=== PATIENT | female | born 1935 | race Caucasian/White ===

== ENCOUNTER → 2017-01-30 | Outpatient (CLI) | payer OTHER ==
[~2017-01-30] MED LIST: ACET-1256 PO; AMLO-114 PO; AMOX500C3 PO; ATEN100T PO; ATOR10TA82 PO; CHOL1000 PO; LOSA1TAB38 PO; WARF4TAB8 PO; WARF5TAB7 PO
[2017-01-30 13:47] LABS: BASO % 0.4 %; BASO ABS # 0.02 K/uL (0-0.2); COMPLETE YES; EOS % 6.3 %; HEMATOCRIT 40.4 % (37-47); IG% 0.2 %; LYMPH % 30.7 %; LYMPH ABS # 1.62 K/uL (1.2-3.4); MEAN CELL VOLUME 96.4 fL (80-100); MEAN CORPUSCULAR HEMOGLOBIN 32.2 pg (25-34); MEAN CORPUSCULAR HGB CONC 33.4 g/dl (32-36); MEAN PLATELET VOLUME 10.6 fL (7.4-10.4); MONO % 9.7 %; NEUT % 52.7 %; PLATELET COUNT 197 K/uL (130-400); RED BLOOD COUNT 4.19 M/uL (4.2-5.4); WHITE BLOOD COUNT 5.27 K/uL (4.8-10.8)
[2017-01-30 14:23] LABS: BLOOD UREA NITROGEN 22 mg/dl (7-18); BUN/CREATININE RATIO 25.3 (10-20); CALCIUM 8.9 mg/dl (8.5-10.1); CARBON DIOXIDE 25 mmol/L (21-32); CHLORIDE 110 mmol/L (98-107); CREATININE 0.89 mg/dl (0.60-1.20); GLUCOSE 97 mg/dl (70-99); SODIUM 143 mmol/L (136-145)
[2017-01-30 14:39] LABS: ESTIMATED AVERAGE GLUCOSE 128 mg/dl; HA1C FLAG Normal (Normal)
--- NOTE | 2017-02-13 11:00 | CODING QUERY MEDICAL NECESSITY ---
SUPPORTING DIAGNOSIS NEEDED A supporting diagnosis is required for the test/procedure performed on this patient in order for us to be reimbursed by the patient's insurance. Please provide a supporting diagnosis for the following test/procedure listed below next to the test name along with your signature. *If there is no additional diagnosis for this patient that would support the following test/procedure please document that below next to the test/procedure. Test(s)/Procedure(s) that require a supporting diagnosis: * HEMOGLOBIN A1C DIAGNOSIS: Provider Signature: Date: Thank you Ludmila Flynn [employer] Once completed, please kindly fax back to [phone] For questions please call [phone]
== END ==
LOC: C.LABBC 09:38
PROVIDERS: ATTEND Internal Medicine Geriatric Medicine
DX: I10 Essential (primary) hypertension (principal); M19.90 Unspecified osteoarthritis, unspecified site; E78.5 Hyperlipidemia, unspecified; Z79.01 Long term (current) use of anticoagulants; M85.80 Other specified disorders of bone density and structure, unspecified site; Z51.81 Encounter for therapeutic drug level monitoring; E11.9 Type 2 diabetes mellitus without complications

== ENCOUNTER → 2017-04-17 | Outpatient (CLI) | payer OTHER ==
[~2017-04-17] MED LIST changes: -ATOR10TA82 PO; +ATOR10TA88 PO
--- NOTE | 2017-04-17 14:14 | MAMMOGRAPHY REPORT ---
BILATERAL DIGITAL SCREENING MAMMOGRAM WITH CAD: 04/17/2017 CLINICAL HISTORY: Routine screening. Patient has no complaints. TECHNIQUE: Current study was also evaluated with a Computer Aided Detection (CAD) system. Bilateral CC and MLO views were obtained. COMPARISON: Comparison is made to exams dated: 04/16/2016 mammogram, 04/13/2015 mammogram, 04/12/2014 m ammogram, 04/07/2012 mammogram, 04/04/2011 mammogram, and 03/27/2006 mammogram - [facility]ter. BREAST COMPOSITION: The tissue of both breasts is almost entirely fatty. FINDINGS: No suspicious masses, calcifications, or areas of architectural distortion are noted in ei ther breast. There has been no significant interval change compared to prior exams. IMPRESSION: ACR BI-RADS CATEGORY 1: NEGATIVE There is no mammographic evidence of malignancy. A 1 year screening mammogram is recommended. The pa tient will receive written notification of the results. Approximately 10% of breast cancers are not detected with mammography. A negative mammographic report should not delay biopsy if a clinically suggestive mass is present. Delmy Yip M.D. /:04/17/2017 10:23:38 Furnace Loader: Mary GILES(Arpita)(Brianna), [facility] letter sent: Normal 1/2 BI-RADS Code: ACR BI-RADS Category 1: Negative
== END | disposition home or self-care (01) ==
LOC: C.MAMM 09:46
PROVIDERS: ATTEND Internal Medicine Geriatric Medicine
DX: Z12.31 Encounter for screening mammogram for malignant neoplasm of breast (principal)

== ENCOUNTER 2018-12-19 05:32 | Inpatient (IN) ==
[2018-12-19] MEDS ORDERED: SODIUM CHLORIDE 0.9% 1000ML 1,000 ML IV SCH ×2 (06:00→10:56)
[2018-12-19 06:17] LABS: Basophils # (auto) 0.02 K/uL (0-0.2); Basophils % (auto) 0.2 %; Eosinophils # (auto) 0.04 K/uL (0-0.5); Eosinophils % (auto) 0.4 %; Hematocrit (blood only) 37.7 % (37-47); Hemoglobin 13.5 g/dL (12.0-16.0); Immature Granulocytes # (auto) 0.03 K/uL (0.00-0.02); Immature Granulocytes % (auto) 0.3 %; Lymphocytes # (auto) 1.66 K/uL (1.2-3.4); Lymphocytes % (auto) 15.3 %; Mean Corpuscular Hgb Conc 35.8 g/dL (32-36); Mean Corpuscular Volume 87.5 fL (80-100); Mean Platelet Volume 10.4 fL (7.4-10.4); Monocytes # (auto) 1.67 K/uL (0.11-0.59); Monocytes % (auto) 15.4 %; Neutrophils # (auto) 7.45 K/uL (1.4-6.5); Neutrophils % (auto) 68.4 %; Platelet Count 331 K/uL (130-400); RDW Coefficient of Variation 22.3 % (11.5-14.5); RDW Standard Deviation 67.7 fL (36.4-46.3); Red Blood Count 4.31 M/uL (4.2-5.4); White Blood Count 10.87 K/uL (4.8-10.8)
[2018-12-19 06:31] LABS: INR 2.6 (0.9-1.1); Partial Thromboplastin Ratio 1.1; Partial Thromboplastin Time 30.6 Seconds (21.0-31.0); Prothrombin Time 25.1 Seconds (9.0-12.0)
[2018-12-19 06:38] LABS: BUN Creatinine Ratio 26.2 (10-20); Calcium 11.5 mg/dl (8.5-10.1); Est GFR (Non-African American) 25.9; Magnesium 2.2 mg/dl (1.8-2.4); Potassium 4.3 mmol/L (3.5-5.1)
[2018-12-19 06:41] LABS: Anisocytosis Present; Target Cells 1+
[2018-12-19 06:51] LABS: Albumin Globulin Ratio 0.5 (0.9-2); Bilirubin,Total 9.8 mg/dl (0.2-1); Globulin 3.7 gm/dl (2.5-4.0); Total Protein 5.7 gm/dl (6.4-8.2); Troponin I 0.184 ng/ml (0-0.045)
[2018-12-19] MEDS ORDERED: IOVERSOL 100ml IV PRN (07:18)
--- NOTE | 2018-12-19 07:19 | Emergency Department Note ---
History of Present Illness General Chief complaint: Fall Stated complaint: FALL-HIT BACK OF HEAD Time Seen by Provider: 12/19/18 05:48 History of Present Illness This is an 83-year-old female presenting to the emergency department after a fall that occurred at home less than 1 hour prior to arrival. The patient states that she got up at night to use the bathroom, and as she was returning to her bed felt lightheadedness. The patient's balance was altered, and she fell to the ground. The patient states that she landed primarily onto her buttocks, and then fell backward, striking her head. The patient is on Coumadin for history of blood clots. About 1 week ago she had an INR greater than 6. This was adjusted through the Coumadin clinic, and was 1.9 a few days ago. The patient does not report having significant pain of her head, neck, chest, abdomen, pelvis, or extremities. She is accompanied by a family member who is concerned as the patient has had some yellowing of her skin in the past several days. The patient does not report fever or chills. She does report some vague urine/bladder discomfort. The patient rates her current discomfort as 0/10. Home Medications Home Medications Medication Instructions Recorded Confirmed Type acetaminophen 500 mg capsule 1,000 mg PO QAM cap 06/16/18 12/19/18 History atorvastatin 10 mg tablet 5 mg PO DAILY tab 06/16/18 12/19/18 History cholecalciferol (vitamin D3) 1,000 1,000 units PO DAILY 06/16/18 12/19/18 History unit capsule acetaminophen 500 mg capsule 500 mg PO PM cap 09/22/18 12/19/18 History ferrous sulfate 325 mg (65 mg 325 mg PO Q2D tab 09/22/18 12/19/18 History iron) tablet omeprazole 20 mg capsule,delayed 20 mg PO DAILY cap 09/22/18 12/19/18 History release ranitidine HCl [Zantac] 150 mg PO DAILY 10/12/18 12/19/18 History furosemide 20 mg tablet See Rx Instructions PO DAILY tab 10/27/18 12/19/18 History amlodipine 10 mg tablet 5 mg PO DAILY tab 12/11/18 12/19/18 History losartan 100 mg tablet 50 mg PO DAILY tab 12/11/18 12/19/18 History warfarin 4 mg tablet See Rx Instructions .ROUTE UD tab 12/15/18 12/19/18 History Allergies Allergy/AdvReac Type Severity Reaction Status Date / Time Cephalosporins Allergy Mild KEFLEX=ITCH Verified 12/19/18 06:26 Y Sulfa (Sulfonamide Allergy Mild RASH Verified 12/19/18 06:26 Antibiotics) levofloxacin Allergy Unknown MUSCLE Verified 12/19/18 06:26 TEAR? Past Med/Surg History Medical History Pre-diabetes (Chronic) Basal cell carcinoma of nose (Resolved) Bronchitis (Resolved) History of hysterectomy (Resolved) Pulmonary embolism (Resolved) Surgical History History of knee replacement procedure of right knee (Resolved) Family History Brother Colorectal cancer Mother Breast cancer Father Liver cancer Social History Preferred Language: Khmer Communication Ability: Effective Axle Inspector Required: No Beliefs That Will Affect Care: None Current Living Situation: Alone Other Information That Helps Us Care for You: No Feels Safe at Home: Yes Safety Concerns: Feels Safe At This Time Smoking Status: Never smoker Do You Dip or Chew Tobacco: No Second Hand Exposure: No Tobacco Cessation Education Requested by Patient: No Hx Alcohol Use: No Hx Substance Use: No Review of Systems A total of 10 systems reviewed and were otherwise negative Physical Exam Vital Signs Vital Signs - 24 hr 12/19/18 05:37 12/19/18 06:01 12/19/18 06:30 Temperature Temperature Source Sepsis Recent Fever Within 48 Hours No Sepsis Action Taken by Nursing No Action Required Pulse Rate 53 L Pulse Rate [Apical] 57 L Pulse Rhythm [Apical] Regular Pulse Strength [Apical] Normal Respiratory Rate 17 Respiratory Effort / Characteristics Non-Labored Spontaneous Respiratory Depth Normal Respiratory Pattern Regular Blood Pressure 96/50 L Blood Pressure [Right Arm] 106/44 L Blood Pressure Mean 65 Blood Pressure Mean [Right Arm] 64 Blood Pressure Position [Right Arm] Sitting Pulse Oximetry 96 96 98 Oxygen Delivery Method Room Air Room Air Room Air Oxygen Flow Rate 12/19/18 07:31 12/19/18 09:09 12/19/18 10:56 Temperature 36.8 C Temperature Source Oral Sepsis Recent Fever Within 48 Hours Sepsis Action Taken by Nursing Pulse Rate Pulse Rate [Apical] 50 L 50 L 50 L Pulse Rhythm [Apical] Regular Pulse Strength [Apical] Normal Respiratory Rate 20 20 22 Respiratory Effort / Characteristics Non-Labored Spontaneous Non-Labored Non-Labored Spontaneous Respiratory Depth Normal Normal Normal Respiratory Pattern Regular Blood Pressure Blood Pressure [Right Arm] 133/59 L 137/53 L 115/57 L Blood Pressure Mean Blood Pressure Mean [Right Arm] 83 81 76 Blood Pressure Position [Right Arm] Lying Pulse Oximetry 97 95 99 Oxygen Delivery Method Room Air Room Air Room Air Oxygen Flow Rate 12/19/18 15:12 12/19/18 16:49 Temperature 36.2 C L Temperature Source Axillary Sepsis Recent Fever Within 48 Hours Sepsis Action Taken by Nursing Pulse Rate Pulse Rate [Apical] 49 L 117 H Pulse Rhythm [Apical] Irregular Pulse Strength [Apical] Respiratory Rate 18 16 Respiratory Effort / Characteristics Respiratory Depth Normal Normal Respiratory Pattern Blood Pressure Blood Pressure [Right Arm] 103/45 L 133/74 Blood Pressure Mean Blood Pressure Mean [Right Arm] 64 93 Blood Pressure Position [Right Arm] Sitting Lying Pulse Oximetry 98 99 Oxygen Delivery Method Room Air Nasal Cannula Oxygen Flow Rate 3 VITALS: Vitals are noted on the nurse's note and reviewed by myself. Vital signs stable. GENERAL: Jaundiced appearing white female who is cooperative with examination. HEAD: Normocephalic atraumatic. EARS: External ear normal. External auditory canals clear, tympanic membranes pearly chairez without erythema or effusion bilaterally. EYES: Pupils equal round and reactive to light and accommodation. Scleral icterus noted. NOSE: Patent, turbinates without inflammation or discharge. MOUTH: Mucous membranes moist. No active blood or bleeding. NECK: Supple without nuchal rigidity. Cervical spine is nontender. HEART: Regular rate and rhythm with systolic murmur LUNGS: Clear to auscultation bilaterally without wheezes, rales or rhonchi. No retractions or accessory muscle use. ABDOMEN: Positive normal bowel sounds x 4. Soft, nontender, without masses or organomegaly. MUSCULOSKELETAL: No muscle atrophy, erythema, or edema noted. Full range of motion in all extremities. NEURO: Patient was alert and oriented to person place and time. CN II through XII grossly intact. Course Administered Medications Dopamine HCl/Dextrose (Dopamine / D5w) 400 mg in 250 mls @ 54.281 mls/hr IV .Q4H37M [facility]; Protocol Stop: 01/18/19 17:14 Last Admin: 12/19/18 19:31 Dose: Not Given Documented by: [id number] Titration: 12/19/18 18:00 Dose: 15 mcg/kg/min, 54.3 mls/hr Documented by: [id number] Titration: 12/19/18 17:45 Dose: 8 mcg/kg/min, 29 mls/hr Documented by: [id number] Admin: 12/19/18 17:25 Dose: 5 mcg/kg/min, 18.1 mls/hr Documented by: [id number] Cosigned by: [id number] Norepinephrine Bitartrate 8 mg (/ Dextrose) 508 mls @ 18.38 mls/hr IV .Q24H [facility]; Protocol Stop: 01/18/19 18:29 Last Admin: 12/19/18 18:39 Dose: 0.05 mcg/kg/min, 18.4 mls/hr Documented by: [id number] Cosigned by: [id number] Pantoprazole Sodium 40 mg/ (Dextrose) 100 mls @ 20 mls/hr IV Q5H [facility] Stop: 01/18/19 18:59 Last Admin: 12/19/18 19:40 Dose: 20 mls/hr Documented by: [id number] Ioversol (Optiray 320 100ml) 93 ml IV ONCE PRN PRN Reason: Interaction Checking Stop: 12/23/18 07:17 Last Admin: 12/19/18 07:19 Dose: 93 ml Documented by: [id number] Ondansetron HCl (Zofran) 4 mg IV Q6H PRN PRN Reason: Nausea Stop: 01/18/19 10:55 Last Admin: 12/19/18 16:47 Dose: 4 mg Documented by: [id number] Ranitidine HCl (Zantac) 150 mg PO DAILY [facility] Stop: 01/18/19 10:55 Last Admin: 12/19/18 13:13 Dose: 150 mg Documented by: [id number] Discontinued Medications Dopamine HCl/Dextrose (Dopamine / D5w) Confirm Administered Dose 400 mg IV .STK- MED ONE Stop: 12/19/18 17:13 Last Admin: 12/19/18 18:52 Dose: Not Given Documented by: [id number] Sodium Chloride (Nss 1000ml) 1,000 mls @ 250 mls/hr IV .Q4H [facility] Stop: 12/19/18 09:59 Last Infusion: 12/19/18 09:21 Dose: 0 mls/hr Documented by: [id number] Admin: 12/19/18 06:11 Dose: 250 mls/hr Documented by: [id number] Sodium Chloride (Nss 1000ml) 1,000 mls @ 100 mls/hr IV .Q10H [facility] Stop: 12/19/18 20:55 Last Infusion: 12/19/18 15:28 Dose: 0 mls/hr Documented by: [id number] Admin: 12/19/18 11:24 Dose: 100 mls/hr Documented by: [id number] Phytonadione 5 mg/ Sodium (Chloride) 50.5 mls @ 101 mls/hr IV TODAY@1100 ONE Stop: 12/19/18 11:29 Last Infusion: 12/19/18 12:15 Dose: 0 mls/hr Documented by: [id number] Admin: 12/19/18 11:05 Dose: 101 mls/hr Documented by: [id number] Piperacillin Sod/Tazobactam (Sod 4.5 gm/ Dextrose) 120 mls @ 200 mls/hr IV TODAY@1200 ONE; Protocol Stop: 12/19/18 12:35 Last Infusion: 12/19/18 13:58 Dose: 0 mls/hr Documented by: [id number] Admin: 12/19/18 13:13 Dose: 200 mls/hr Documented by: [id number] Phytonadione 5 mg/ Sodium (Chloride) 50.5 mls @ 101 mls/hr IV TODAY@1815 ONE Stop: 12/19/18 18:44 Last Infusion: 12/19/18 19:20 Dose: 0 mls/hr Documented by: [id number] Admin: 12/19/18 18:48 Dose: 101 mls/hr Documented by: [id number] Piperacillin Sod/Tazobactam (Sod 4.5 gm/ Dextrose) 120 mls @ 200 mls/hr IV NOW ONE; Protocol Stop: 12/19/18 19:20 Last Infusion: 12/19/18 20:36 Dose: 0 mls/hr Documented by: [id number] Admin: 12/19/18 19:40 Dose: 200 mls/hr Documented by: [id number] Pantoprazole Sodium (Protonix) 40 mg PO DAILY [facility] Stop: 01/18/19 10:59 Last Admin: 12/19/18 13:13 Dose: 40 mg Documented by: [id number] Medical Decision Making Differential Diagnosis Differential diagnosis: Etiologies such as sprain, strain, fracture, dislocation, subluxation, contusion, cancer, mechanical fall, cardiopulmonary event, biliary colic, c holecystitis, hepatitis, pancreatitis, cardiac disease, pancreatitis, gastritis, peptic ulcer disease, appendicitis, cystitis, diverticulitis, mesenteric ischemia, inflammatory bowel disease, ileus, bowel obstruction, testicular/adnexal torsion, aortic pathology, shingles, as well as others were considered Laboratory Data Result diagrams: 12/19/18 19:36 12/19/18 19:36 Lab Results 12/19/18 12/19/18 12/19/18 Range/Units 06:04 06:04 06:04 WBC 10.87 H (4.8-10.8) K/uL RBC 4.31 (4.2-5.4) M/uL Hgb 13.5 (12.0-16.0) g/dL Hct 37.7 (37-47) % MCV 87.5 (80-100) fL MCH 31.3 (25-34) pg MCHC 35.8 (32-36) g/dL RDW Std Deviation 67.7 H (36.4-46.3) fL RDW Coeff of Rachna 22.3 H (11.5-14.5) % Plt Count 331 (130-400) K/uL MPV 10.4 (7.4-10.4) fL Immature Gran % (Auto) 0.3 % Neut % (Auto) 68.4 % Lymph % (Auto) 15.3 % [place] % (Auto) 15.4 % Eos % (Auto) 0.4 % Baso % (Auto) 0.2 % Immature Gran # (Auto) 0.03 H (0.00-0.02) K/uL Neut # (Auto) 7.45 H (1.4-6.5) K/uL Lymph # (Auto) 1.66 (1.2-3.4) K/uL [place] # (Auto) 1.67 H (0.11-0.59) K/uL Eos # (Auto) 0.04 (0-0.5) K/uL Baso # (Auto) 0.02 (0-0.2) K/uL Absolute Nucleated RBC (0-0) K/uL Nucleated RBC % (auto) % Anisocytosis Present Target Cells 1+ Tear Drop Cells Echinocytes PT 25.1 H (9.0-12.0) Seconds INR 2.6 H (0.9-1.1) APTT 30.6 (21.0-31.0) Seconds PTT Ratio 1.1 Fibrinogen (184-400) mg/dl Sample Site POC pH (7.35-7.45) POC pCO2 (35-46) mmHg POC pO2 (80-95) mmHg POC HCO3 (19-24) evy/L POC Total CO2 (24-31) mEq/l POC Base Excess (-9-1.8) evy/L POC ABG O2 Sat (90-95) % Jamie Test O2 Delivery Device Sodium 133 L (136-145) mmol/L Potassium 4.3 (3.5-5.1) mmol/L Chloride 102 (98-107) mmol/L Carbon Dioxide 21 (21-32) mmol/L Anion Gap 10.0 (3-11) BUN 47 H (7-18) mg/dl Creatinine 1.78 H (0.6-1.2) mg/dl Est Cr Clr Drug Dosing 27.0 ml/min Est GFR ( Amer) 30.0 Est GFR (Non-Af Amer) 25.9 BUN/Creatinine Ratio 26.2 H (10-20) Glucose 112 H (70-99) mg/dl Lactate (0.4-2.0) mmol/L Calcium 11.5 H (8.5-10.1) mg/dl Magnesium 2.2 (1.8-2.4) mg/dl Total Bilirubin 9.8 H (0.2-1) mg/dl Direct Bilirubin (0-0.2) mg/dl AST 470 H (15-37) U/L ALT 126 H (12-78) U/L Alkaline Phosphatase 1249 H (45-117) U/L Troponin I 0.184 H* (0-0.045) ng/ml NT-Pro-B Natriuret Pep Total Protein 5.7 L (6.4-8.2) gm/dl Albumin 2.0 L (3.4-5.0) gm/dl Globulin 3.7 (2.5-4.0) gm/dl Albumin/Globulin Ratio 0.5 L (0.9-2) Lipase 442 H (73-393) U/L Urine Color Urine Appearance (Clear) Urine pH (4.5-7.5) Ur Specific [place] (1.000-1.030) Urine Protein (Negative) Urine Glucose (UA) (Negative) Urine Ketones (Negative) Urine Blood (Negative) Urine Nitrite (Negative) Urine Bilirubin (Negative) Urine Urobilinogen (Negative) Ur Leukocyte Esterase (Negative) Urine RBC (0-4) /hpf Urine WBC (0-5) /hpf Ur Epithelial Cells (0-5) /lpf Calcium Oxalate Crystal (None Prsent) Urine Bacteria (Negative) Hyaline Casts (0-5) /lpf Urine Mucus (None Prsent) Blood Type Antibody Screen Crossmatch 12/19/18 12/19/18 12/19/18 Range/Units 11:40 14:13 14:13 WBC (4.8-10.8) K/uL RBC (4.2-5.4) M/uL Hgb (12.0-16.0) g/dL Hct (37-47) % MCV (80-100) fL MCH (25-34) pg MCHC (32-36) g/dL RDW Std Deviation (36.4-46.3) fL RDW Coeff of Rachna (11.5-14.5) % Plt Count (130-400) K/uL MPV (7.4-10.4) fL Immature Gran % (Auto) % Neut % (Auto) % Lymph % (Auto) % [place] % (Auto) % Eos % (Auto) % Baso % (Auto) % Immature Gran # (Auto) (0.00-0.02) K/uL Neut # (Auto) (1.4-6.5) K/uL Lymph # (Auto) (1.2-3.4) K/uL [place] # (Auto) (0.11-0.59) K/uL Eos # (Auto) (0-0.5) K/uL Baso # (Auto) (0-0.2) K/uL Absolute Nucleated RBC (0-0) K/uL Nucleated RBC % (auto) % Anisocytosis Target Cells Tear Drop Cells Echinocytes PT (9.0-12.0) Seconds INR (0.9-1.1) APTT (21.0-31.0) Seconds PTT Ratio Fibrinogen (184-400) mg/dl Sample Site POC pH (7.35-7.45) POC pCO2 (35-46) mmHg POC pO2 (80-95) mmHg POC HCO3 (19-24) evy/L POC Total CO2 (24-31) mEq/l POC Base Excess (-9-1.8) evy/L POC ABG O2 Sat (90-95) % Jamie Test O2 Delivery Device Sodium 134 L (136-145) mmol/L Potassium 4.5 (3.5-5.1) mmol/L Chloride 104 (98-107) mmol/L Carbon Dioxide 19 L (21-32) mmol/L Anion Gap 11.0 (3-11) BUN 45 H (7-18) mg/dl Creatinine 1.60 H (0.6-1.2) mg/dl Est Cr Clr Drug Dosing 30.0 ml/min Est GFR ( Amer) 34.2 Est GFR (Non-Af Amer) 29.5 BUN/Creatinine Ratio 28.1 H (10-20) Glucose 83 (70-99) mg/dl Lactate (0.4-2.0) mmol/L Calcium 11.4 H (8.5-10.1) mg/dl Magnesium (1.8-2.4) mg/dl Total Bilirubin 10.3 H (0.2-1) mg/dl Direct Bilirubin 7.9 H (0-0.2) mg/dl AST 456 H (15-37) U/L ALT 125 H (12-78) U/L Alkaline Phosphatase 1174 H (45-117) U/L Troponin I (0-0.045) ng/ml NT-Pro-B Natriuret Pep Cancelled 7321 H Total Protein 5.6 L (6.4-8.2) gm/dl Albumin 1.9 L (3.4-5.0) gm/dl Globulin (2.5-4.0) gm/dl Albumin/Globulin Ratio (0.9-2) Lipase (73-393) U/L Urine Color [place] Urine Appearance Slightly Cloudy H (Clear) Urine pH (4.5-7.5) Ur Specific [place] 1.041 H (1.000-1.030) Urine Protein Positive H (Negative) Urine Glucose (UA) (Negative) Urine Ketones (Negative) Urine Blood (Negative) Urine Nitrite (Negative) Urine Bilirubin (Negative) Urine Urobilinogen (Negative) Ur Leukocyte Esterase (Negative) Urine RBC 0-4 (0-4) /hpf Urine WBC 5-10 H (0-5) /hpf Ur Epithelial Cells >30 H (0-5) /lpf Calcium Oxalate Crystal Present H (None Prsent) Urine Bacteria 1+ H (Negative) Hyaline Casts 10-30 H (0-5) /lpf Urine Mucus Present H (None Prsent) Blood Type Antibody Screen Crossmatch 12/19/18 12/19/18 12/19/18 Range/Units 14:13 14:13 19:18 WBC (4.8-10.8) K/uL RBC (4.2-5.4) M/uL Hgb (12.0-16.0) g/dL Hct (37-47) % MCV (80-100) fL MCH (25-34) pg MCHC (32-36) g/dL RDW Std Deviation (36.4-46.3) fL RDW Coeff of Rachna (11.5-14.5) % Plt Count (130-400) K/uL MPV (7.4-10.4) fL Immature Gran % (Auto) % Neut % (Auto) % Lymph % (Auto) % [place] % (Auto) % Eos % (Auto) % Baso % (Auto) % Immature Gran # (Auto) (0.00-0.02) K/uL Neut # (Auto) (1.4-6.5) K/uL Lymph # (Auto) (1.2-3.4) K/uL [place] # (Auto) (0.11-0.59) K/uL Eos # (Auto) (0-0.5) K/uL Baso # (Auto) (0-0.2) K/uL Absolute Nucleated RBC (0-0) K/uL Nucleated RBC % (auto) % Anisocytosis Target Cells Tear Drop Cells Echinocytes PT 24.6 H (9.0-12.0) Seconds INR 2.6 H (0.9-1.1) APTT (21.0-31.0) Seconds PTT Ratio Fibrinogen (184-400) mg/dl Sample Site R Radial POC pH 7.28 L (7.35-7.45) POC pCO2 30 L (35-46) mmHg POC pO2 113 H (80-95) mmHg POC HCO3 14 L (19-24) evy/L POC Total CO2 15 L (24-31) mEq/l POC Base Excess -13.0 L (-9-1.8) evy/L POC ABG O2 Sat 98.0 H (90-95) % Jamie Test Pass O2 Delivery Device Cannula Sodium (136-145) mmol/L Potassium (3.5-5.1) mmol/L Chloride (98-107) mmol/L Carbon Dioxide (21-32) mmol/L Anion Gap (3-11) BUN (7-18) mg/dl Creatinine (0.6-1.2) mg/dl Est Cr Clr Drug Dosing ml/min Est GFR ( Amer) Est GFR (Non-Af Amer) BUN/Creatinine Ratio (10-20) Glucose (70-99) mg/dl Lactate (0.4-2.0) mmol/L Calcium (8.5-10.1) mg/dl Magnesium (1.8-2.4) mg/dl Total Bilirubin (0.2-1) mg/dl Direct Bilirubin (0-0.2) mg/dl AST (15-37) U/L ALT (12-78) U/L Alkaline Phosphatase (45-117) U/L Troponin I 0.274 H* (0-0.045) ng/ml NT-Pro-B Natriuret Pep Total Protein (6.4-8.2) gm/dl Albumin (3.4-5.0) gm/dl Globulin (2.5-4.0) gm/dl Albumin/Globulin Ratio (0.9-2) Lipase (73-393) U/L Urine Color Urine Appearance (Clear) Urine pH (4.5-7.5) Ur Specific [place] (1.000-1.030) Urine Protein (Negative) Urine Glucose (UA) (Negative) Urine Ketones (Negative) Urine Blood (Negative) Urine Nitrite (Negative) Urine Bilirubin (Negative) Urine Urobilinogen (Negative) Ur Leukocyte Esterase (Negative) Urine RBC (0-4) /hpf Urine WBC (0-5) /hpf Ur Epithelial Cells (0-5) /lpf Calcium Oxalate Crystal (None Prsent) Urine Bacteria (Negative) Hyaline Casts (0-5) /lpf Urine Mucus (None Prsent) Blood Type Antibody Screen Crossmatch 12/19/18 12/19/18 12/19/18 Range/Units 19:35 19:35 19:36 WBC 13.90 H (4.8-10.8) K/uL RBC 3.96 L (4.2-5.4) M/uL Hgb 12.7 (12.0-16.0) g/dL Hct 34.2 L (37-47) % MCV 86.4 (80-100) fL MCH 32.1 (25-34) pg MCHC 37.1 H (32-36) g/dL RDW Std Deviation 67.9 H (36.4-46.3) fL RDW Coeff of Rachna 22.5 H (11.5-14.5) % Plt Count 296 (130-400) K/uL MPV 10.8 H (7.4-10.4) fL Immature Gran % (Auto) 0.6 % Neut % (Auto) 76.8 % Lymph % (Auto) 9.2 % [place] % (Auto) 12.8 % Eos % (Auto) 0.4 % Baso % (Auto) 0.2 % Immature Gran # (Auto) 0.08 H (0.00-0.02) K/uL Neut # (Auto) 10.68 H (1.4-6.5) K/uL Lymph # (Auto) 1.28 (1.2-3.4) K/uL [place] # (Auto) 1.78 H (0.11-0.59) K/uL Eos # (Auto) 0.05 (0-0.5) K/uL Baso # (Auto) 0.03 (0-0.2) K/uL Absolute Nucleated RBC 0.02 H (0-0) K/uL Nucleated RBC % (auto) 0.1 % Anisocytosis Present Target Cells 1+ Tear Drop Cells 1+ Echinocytes 1+ PT (9.0-12.0) Seconds INR (0.9-1.1) APTT (21.0-31.0) Seconds PTT Ratio Fibrinogen (184-400) mg/dl Sample Site POC pH (7.35-7.45) POC pCO2 (35-46) mmHg POC pO2 (80-95) mmHg POC HCO3 (19-24) evy/L POC Total CO2 (24-31) mEq/l POC Base Excess (-9-1.8) evy/L POC ABG O2 Sat (90-95) % Jamie Test O2 Delivery Device Sodium (136-145) mmol/L Potassium (3.5-5.1) mmol/L Chloride (98-107) mmol/L Carbon Dioxide (21-32) mmol/L Anion Gap (3-11) BUN (7-18) mg/dl Creatinine (0.6-1.2) mg/dl Est Cr Clr Drug Dosing ml/min Est GFR ( Amer) Est GFR (Non-Af Amer) BUN/Creatinine Ratio (10-20) Glucose (70-99) mg/dl Lactate 6.4 H* (0.4-2.0) mmol/L Calcium (8.5-10.1) mg/dl Magnesium (1.8-2.4) mg/dl Total Bilirubin (0.2-1) mg/dl Direct Bilirubin (0-0.2) mg/dl AST (15-37) U/L ALT (12-78) U/L Alkaline Phosphatase (45-117) U/L Troponin I (0-0.045) ng/ml NT-Pro-B Natriuret Pep Total Protein (6.4-8.2) gm/dl Albumin (3.4-5.0) gm/dl Globulin (2.5-4.0) gm/dl Albumin/Globulin Ratio (0.9-2) Lipase (73-393) U/L Urine Color Urine Appearance (Clear) Urine pH (4.5-7.5) Ur Specific [place] (1.000-1.030) Urine Protein (Negative) Urine Glucose (UA) (Negative) Urine Ketones (Negative) Urine Blood (Negative) Urine Nitrite (Negative) Urine Bilirubin (Negative) Urine Urobilinogen (Negative) Ur Leukocyte Esterase (Negative) Urine RBC (0-4) /hpf Urine WBC (0-5) /hpf Ur Epithelial Cells (0-5) /lpf Calcium Oxalate Crystal (None Prsent) Urine Bacteria (Negative) Hyaline Casts (0-5) /lpf Urine Mucus (None Prsent) Blood Type A Negative Antibody Screen NEGATIVE Crossmatch See Detail 12/19/18 12/19/18 Range/Units 19:36 19:36 WBC (4.8-10.8) K/uL RBC (4.2-5.4) M/uL Hgb (12.0-16.0) g/dL Hct (37-47) % MCV (80-100) fL MCH (25-34) pg MCHC (32-36) g/dL RDW Std Deviation (36.4-46.3) fL RDW Coeff of Rachna (11.5-14.5) % Plt Count (130-400) K/uL MPV (7.4-10.4) fL Immature Gran % (Auto) % Neut % (Auto) % Lymph % (Auto) % [place] % (Auto) % Eos % (Auto) % Baso % (Auto) % Immature Gran # (Auto) (0.00-0.02) K/uL Neut # (Auto) (1.4-6.5) K/uL Lymph # (Auto) (1.2-3.4) K/uL [place] # (Auto) (0.11-0.59) K/uL Eos # (Auto) (0-0.5) K/uL Baso # (Auto) (0-0.2) K/uL Absolute Nucleated RBC (0-0) K/uL Nucleated RBC % (auto) % Anisocytosis Target Cells Tear Drop Cells Echinocytes PT 25.7 H (9.0-12.0) Seconds INR 2.7 H (0.9-1.1) APTT 31.6 H (21.0-31.0) Seconds PTT Ratio 1.2 Fibrinogen 242 (184-400) mg/dl Sample Site POC pH (7.35-7.45) POC pCO2 (35-46) mmHg POC pO2 (80-95) mmHg POC HCO3 (19-24) evy/L POC Total CO2 (24-31) mEq/l POC Base Excess (-9-1.8) evy/L POC ABG O2 Sat (90-95) % Jamie Test O2 Delivery Device Sodium 136 (136-145) mmol/L Potassium 4.3 (3.5-5.1) mmol/L Chloride 106 (98-107) mmol/L Carbon Dioxide 15 L (21-32) mmol/L Anion Gap 15.0 H (3-11) BUN 47 H (7-18) mg/dl Creatinine 1.76 H (0.6-1.2) mg/dl Est Cr Clr Drug Dosing 27.3 ml/min Est GFR ( Amer) 30.5 Est GFR (Non-Af Amer) 26.3 BUN/Creatinine Ratio 26.9 H (10-20) Glucose 87 (70-99) mg/dl Lactate (0.4-2.0) mmol/L Calcium 10.8 H (8.5-10.1) mg/dl Magnesium 2.2 (1.8-2.4) mg/dl Total Bilirubin (0.2-1) mg/dl Direct Bilirubin (0-0.2) mg/dl AST (15-37) U/L ALT (12-78) U/L Alkaline Phosphatase (45-117) U/L Troponin I 0.297 H* (0-0.045) ng/ml NT-Pro-B Natriuret Pep Total Protein (6.4-8.2) gm/dl Albumin (3.4-5.0) gm/dl Globulin (2.5-4.0) gm/dl Albumin/Globulin Ratio (0.9-2) Lipase (73-393) U/L Urine Color Urine Appearance (Clear) Urine pH (4.5-7.5) Ur Specific [place] (1.000-1.030) Urine Protein (Negative) Urine Glucose (UA) (Negative) Urine Ketones (Negative) Urine Blood (Negative) Urine Nitrite (Negative) Urine Bilirubin (Negative) Urine Urobilinogen (Negative) Ur Leukocyte Esterase (Negative) Urine RBC (0-4) /hpf Urine WBC (0-5) /hpf Ur Epithelial Cells (0-5) /lpf Calcium Oxalate Crystal (None Prsent) Urine Bacteria (Negative) Hyaline Casts (0-5) /lpf Urine Mucus (None Prsent) Blood Type Antibody Screen Crossmatch Imaging Data Radiologist's Impression: HEAD CT NONCONTRAST CT DOSE: HISTORY: Fall TECHNIQUE: Multiaxial CT images of the head were performed without the use of intravenous contrast. Automated exposure control was utilized for this study. A dose lowering technique was utilized adhering to the principles of ALARA. Comparison: Head CT 10/12/2018. Findings: Old nasal bone fractures are again noted. The paranasal sinuses and mastoid air cells are clear. The calvarium and skull base are intact. The ventricles and sulci are within normal limits. There is no mass, hematoma, midline shift, or acute infarct. Impression: No acute intracranial abnormality. CT cervical spine wo con CT DOSE: 848.27 mGy.cm HISTORY: Trauma fall TECHNIQUE: Multiaxial CT images of the cervical spine were performed and reformatted in the sagittal and coronal plane without the use of contrast. A dose lowering technique was utilized adhering to the principles of ALARA. COMPARISON: None. FINDINGS: No fractures. No subluxation. Prevertebral soft tissues and the C1-C2 interval are intact. No pneumothorax. Considerable degenerative change through out. No evidence for compression deformity. IMPRESSION: No acute process. Considerable degenerative change. CT chest w con CT DOSE: 1312.52 mGy.cm HISTORY: Trauma. Chest pain. fall. trauma TECHNIQUE: Multiaxial CT images of the chest were performed following the intravenous administration of contrast. A dose lowering technique was utilized adhering to the principles of ALARA. COMPARISON: 10/13/2018 FINDINGS: The lungs are clear. The mediastinal vascular structures are within normal limits. No mediastinal or hilar lymphadenopathy. No pleural effusion or pneumothorax. Limited views of the upper abdomen demonstrate a normal liver and spleen. IMPRESSION: No significant abnormality identified within the chest. ABDOMEN AND PELVIS CT WITH IV CONTRAST HISTORY: Acute abdominal trauma with fall and jaundice. trauma. jaundice. TECHNIQUE: Multiaxial CT images of the abdomen and pelvis were performed following the use of intravenous contrast. A dose lowering technique was utilized adhering to the principles of ALARA. COMPARISON STUDY: CT abdomen and pelvis 10/13/2018. FINDINGS: Mild dependent subsegmental bibasilar atelectasis. There is no pneumatosis or pneumoperitoneum. The imaged inferior cardiac chambers are at least moderately enlarged. Heterogeneous appearance of the liver without definite evidence of cirrhosis. Indeterminate 4 mm hypodense lesion about the superior left hepatic lobe. No biliary ductal dilation identified. The spleen, pancreas and adrenal glands are unremarkable. Mild gallbladder distention with associated gallbladder wall thickening and suggestion of trace layering gallbladder sludge. 5 mm cyst of the inferior pole left kidney. No renal or ureteral calculi or obstructive uropathy. Partial distention of the bladder. Prior hysterectomy. No adnexal mass lesions. Moderate calcified plaque about the abdominal aorta without aneurysm. 2.1 x 1.6 cm right inguinal lymph node appears unchanged. No new or progressive adenopathy identified. No bowel obstruction. Colonic diverticulosis without acute diverticulitis. Nondistention about the hepatic flexure and transverse colon. Normal appendix. Moderate diffuse generalized body wall edema. Multilevel facet arthrosis with spondylitic spurring. Severe disc space narrowing at L2-L3. IMPRESSION: 1. No acute posttraumatic abnormality of the abdomen or pelvis identified. 2. No acute fracture. 3. No bowel obstruction or focal bowel wall thickening. 4. Colonic diverticulosis without acute diverticulitis. 5. Gallbladder distention with wall thickening and suggested gallbladder sludge. Correlate clinically to exclude acute cholecystitis. 6. Cardiomegaly. 7. Unchanged right inguinal adenopathy. 8. Additional findings as above. MDM Narrative Physical exam and history were performed. Nursing notes, EMR, and Medication List were personally reviewed. Patient appears to have suffered a fall at home. Because of her Coumadin use sh e elected to come to the ER for evaluation. On presentation the patient is markedly jaundiced, and according to family this is new over the past several days. IV access was established and labs were obtained. The patient was gently hydrated with normal saline. Because of her injuries and presentation CT scans of the head, neck, chest, abdomen, and pelvis were performed. Urine was ordered. The case was discussed with my attending, who also independently evaluated the patient. The patient's blood work is as above and was reviewed. She does not have a significantly elevated white blood cell count. Her INR is 2.6. Creatinine is 1.78. Patient's transaminases are markedly elevated. Calcium is 11.5. Troponin is elevated at 0.184. Lipase is 442. Bilirubin is 9.8. Patient CT scans are as above and do not show acute traumatic findings. Her CT of the abdomen may suggest cholecystitis contributing to her symptoms, although she does not have significant pain on examination. Overall the patient does not appear well for discharge home. The case was discussed with the on-call [facility] hospitalist, who agreed to evaluate the patient here in the department. Please see their dictation for further patient course, plan, and disposition. The chart was completed utilizing [employer] Voice Recognition Software. Grammatical errors, random word insertions, pronoun errors, and incomplete sentences are an occasional consequence of this system due to software limitations, ambient noise, and hardware issues. Any formal questions or concerns about the content, text, or information contained within the body of this dictation should be directly addressed to the provider for clarification. . Impression & Plan Fall, Jaundice, Elevated troponin Discharge Plan Visit Data *Final* Discharge Date/Time: 12/19/18 09:19 Chief Complaint: Fall Stated Complaint: FALL-HIT BACK OF HEAD ED Provider: Jayashree Mcallister ED Midlevel Provider: Cliff Guy Discharge Problem: Fall, Jaundice, Elevated troponin Patient Disposition: Admitted As Inpatient Discharge Instructions Interventions: ED Discharge Assessment Last Done: 12/19/18 09:19 Discharge Problem: Fall Qualifiers: Encounter type: initial encounter Qualified Code(s): W19.XXXA - Unspecified fall, initial encounter
--- NOTE | 2018-12-19 07:34 | CT Scan Report ---
CT cervical spine wo con CT DOSE: 848.27 mGy.cm HISTORY: Trauma fall TECHNIQUE: Multiaxial CT images of the cervical spine were performed and reformatted in the sagittal and coronal plane without the use of contrast. A dose lowering technique was utilized adhering to th e principles of ALARA. COMPARISON: None. FINDINGS: No fractures. No subluxation. Prevertebral soft tissues and the C1-C2 interval are intact. No pneumothorax. Considerable degenerative change throughout. No evidence for compression deformity. IMPRESSION: No acute process. Considerable degenerative change. The above report was generated using voice recognition software. It may contain grammatical, syntax or spelling errors. Electronically signed by: Raman Balbuena M.D. 12/19/2018 7:33 AM
--- NOTE | 2018-12-19 07:41 | CT Scan Report ---
CT chest w con CT DOSE: 1312.52 mGy.cm HISTORY: Trauma. Chest pain. fall. trauma TECHNIQUE: Multiaxial CT images of the chest were performed following the intravenous administration of contrast. A dose lowering technique was utilized adhering to the principles of ALARA. COMPARISON: 10/13/2018 FINDINGS: The lungs are clear. The mediastinal vascular structures are within normal limits. No media stinal or hilar lymphadenopathy. No pleural effusion or pneumothorax. Limited views of the upper abdo men demonstrate a normal liver and spleen. IMPRESSION: No significant abnormality identified within the chest. The above report was generated using voice recognition software. It may contain grammatical, syntax or spelling errors. Electronically signed by: Raman Balbuena M.D. 12/19/2018 7:40 AM
--- NOTE | 2018-12-19 07:46 | CT Scan Report ---
ABDOMEN AND PELVIS CT WITH IV CONTRAST HISTORY: Acute abdominal trauma with fall and jaundice. trauma. jaundice. TECHNIQUE: Multiaxial CT images of the abdomen and pelvis were performed following the use of intrave nous contrast. A dose lowering technique was utilized adhering to the principles of ALARA. COMPARISON STUDY: CT abdomen and pelvis 10/13/2018. FINDINGS: Mild dependent subsegmental bibasilar atelectasis. There is no pneumatosis or pneumoperitoneum. The i leila inferior cardiac chambers are at least moderately enlarged. Heterogeneous appearance of the liver without definite evidence of cirrhosis. Indeterminate 4 mm hypo dense lesion about the superior left hepatic lobe. No biliary ductal dilation identified. The spleen, pancreas and adrenal glands are unremarkable. Mild gallbladder distention with associated gallbladde r wall thickening and suggestion of trace layering gallbladder sludge. 5 mm cyst of the inferior pole left kidney. No renal or ureteral calculi or obstructive uropathy. Partial distention of the bladder . Prior hysterectomy. No adnexal mass lesions. Moderate calcified plaque about the abdominal aorta wi thout aneurysm. 2.1 x 1.6 cm right inguinal lymph node appears unchanged. No new or progressive adeno татьяна identified. No bowel obstruction. Colonic diverticulosis without acute diverticulitis. Nondistention about the he patic flexure and transverse colon. Normal appendix. Moderate diffuse generalized body wall edema. Mu ltilevel facet arthrosis with spondylitic spurring. Severe disc space narrowing at L2-L3. IMPRESSION: 1. No acute posttraumatic abnormality of the abdomen or pelvis identified. 2. No acute fracture. 3. No bowel obstruction or focal bowel wall thickening. 4. Colonic diverticulosis without acute diverticulitis. 5. Gallbladder distention with wall thickening and suggested gallbladder sludge. Correlate clinically to exclude acute cholecystitis. 6. Cardiomegaly. 7. Unchanged right inguinal adenopathy. 8. Additional findings as above. Electronically signed by: Andrew Plata M.D. 12/19/2018 7:45 AM
--- NOTE | 2018-12-19 07:48 | CT Scan Report ---
HEAD CT NONCONTRAST CT DOSE: HISTORY: Fall TECHNIQUE: Multiaxial CT images of the head were performed without the use of intravenous contrast. A utomated exposure control was utilized for this study. A dose lowering technique was utilized adheri ng to the principles of ALARA. Comparison: Head CT 10/12/2018. Findings: Old nasal bone fractures are again noted. The paranasal sinuses and mastoid air cells are c lear. The calvarium and skull base are intact. The ventricles and sulci are within normal limits. The re is no mass, hematoma, midline shift, or acute infarct. Impression: No acute intracranial abnormality. Electronically signed by: Hari Amezcua M.D. 12/19/2018 7:47 AM
[2018-12-19] MEDS ORDERED: SODIUM CHLORIDE 0.9% 250 ML IV PRN ×2 (09:18→18:40)
--- NOTE | 2018-12-19 09:18 | History & Physical Report ---
Date of Service December 19, 2018 Assessment & Plan (1) Jaundice: bilirubin elevated at 9 and alk phos markedly elevated at 1200 CT abd/pelvis shows dilated gall bladder, no mention of dilated biliary tree no pain, some weight loss over past few months, no mention of pancreatic lesion, pancreatic duct not dilated will order MRCP stat to look for occlusion discussed with Ally CARLOS at time of admission, keep patient NPO for possible ERCP or EUS at the end of the day no pain in RUQ, no fever, mild leukocytosis doubt cholangitis or cholecystitis but will cover with Zosyn IV for time being (2) CLIF (acute kidney injury): due to dehydration, mild diarrhea recently, poor PO intake concurrently taking Lasix and Losartan as outpatient Cr is 1.7, will give NSS at 100cc/hr, 1L given in the ED already repeat BMP in the afternoon and morning electrolytes stable hold Lasix and Losartan (3) Elevated troponin: no chest pain, sinus bradycardia on monitor will cycle troponin x 2 sets and monitor on tele doubt that this represents ACS or even demand ischemia, perhaps just elevated due to CLIF (4) Elevated LFTs: as mentioned above, all four are elevated but bili up at 9 and alk phos 1200 AST 470 and ALT 126 more likely an obstructive process MRCP this morning GI to decide on further procedures (5) Fall: sounds like mechanical fall due to weakness fell on her buttocks and then continued to fall backwards and struck head on floor no subdural hematoma on CT head monitor for any pauses or arrhythmias on monitor sinus mannie in the ED wore 30 day monitor as outpatient in the past, only one episode of 3 second pause was found (6) History of pulmonary embolism: INR is 2.6 on Coumadin hold Coumadin order Vitamin K 5mg IV and order FFP to be on hold for possible ERCP later today (7) Leukocytosis: mild at 10k no fever will cover with Zosyn but low suspicion for cholangitis at this time (8) Weight loss: could not give me specifics poor appetite for weeks/months has been "trying" to lose weight with Lasix for lower extremity edema not the greatest historian History of Present Illness Chief Complaint: I fell this morning Primary Care Provider: Darlene Lui PA-C 83 yo female with history of HTN, peripheral edema, h/o PE on Coumadin who presented today after falling at home. She awoke at 3am and had to use the restroom. On her way back to bed she felt weak and unsteady and tried to grab onto the curiel but could not. She fell on her buttocks and then continued to fall backwards and struck her head. She did not lose consciousness. She had some mild pain from the fall. She called her daughter and they decided that she should go to the ED since she hit her head on Coumadin. She denies any chest pain or palpitations prior to the fall, she just started to feel weak. Her daughter reports that she has been getting weaker for several weeks. In September she fell and broke her nose and since that time she has been growing weaker. She has been eating less, c/o early satiety and even no appetite. Occasional nausea but no vomiting. Typically stools have been formed, one episode of diarrhea in the past 24 hours. She had not noticed any light color to her stools. Her urine has been dark but she attributed this to the Lasix she takes three days a week. Her daughter noticed her skin was yellow on Saturday. She says that she sees her mother every day for lunch so she is quite certain that the skin color change is new. The patient has not had any abdominal pain. She thinks she has been losing some weight but cannot give specific amount and she attributes weight loss to Lasix. She thinks she has been drinking enough water but she is not sure. No fever or chills. No night sweats. Occasional dysnea on exertion but no dyspnea at rest and no orthopnea. She had a colonoscopy in the fall of 2017 that showed several polyps that were removed, she follows with Ally CARLOS. Her brother had colon cancer which is the reason for her close surveilance. She had a follow up colonoscopy and her daughter noted that she had some issues with anesthesia and had to be bagged for a short period after the procedure. She has never had an EGD. Surgical history is total hysterectomy and right knee replacement. Allergies Allergy/AdvReac Type Severity Reaction Status Date / Time Cephalosporins Allergy Mild KEFLEX=ITCH Verified 12/19/18 06:26 Y Sulfa (Sulfonamide Allergy Mild RASH Verified 12/19/18 06:26 Antibiotics) levofloxacin Allergy Unknown MUSCLE Verified 12/19/18 06:26 TEAR? Home Medications Home Medications Medication Instructions Recorded Confirmed Type acetaminophen 500 mg capsule 1,000 mg PO QAM cap 06/16/18 12/19/18 History atorvastatin 10 mg tablet 5 mg PO DAILY tab 06/16/18 12/19/18 History cholecalciferol (vitamin D3) 1,000 1,000 units PO DAILY 06/16/18 12/19/18 History unit capsule acetaminophen 500 mg capsule 500 mg PO PM cap 09/22/18 12/19/18 History ferrous sulfate 325 mg (65 mg 325 mg PO Q2D tab 09/22/18 12/19/18 History iron) tablet omeprazole 20 mg capsule,delayed 20 mg PO DAILY cap 09/22/18 12/19/18 History release ranitidine HCl [Zantac] 150 mg PO DAILY 10/12/18 12/19/18 History furosemide 20 mg tablet See Rx Instructions PO DAILY tab 10/27/18 12/19/18 History amlodipine 10 mg tablet 5 mg PO DAILY tab 12/11/18 12/19/18 History losartan 100 mg tablet 50 mg PO DAILY tab 12/11/18 12/19/18 History warfarin 4 mg tablet See Rx Instructions .ROUTE UD tab 12/15/18 12/19/18 Histo ry Past Med/Surg History Medical History Pre-diabetes (Chronic) Basal cell carcinoma of nose (Resolved) Bronchitis (Resolved) History of hysterectomy (Resolved) Pulmonary embolism (Resolved) Surgical History History of knee replacement procedure of right knee (Resolved) Family History Brother Colorectal cancer Mother Breast cancer Father Liver cancer Social History Preferred Language: Serbian Communication Ability: Effective [employer] Required: No Beliefs That Will Affect Care: None Current Living Situation: Alone Other Information That Helps Us Care for You: No Feels Safe at Home: Yes Safety Concerns: Feels Safe At This Time Smoking Status: Never smoker Do You Dip or Chew Tobacco: No Second Hand Exposure: No Tobacco Cessation Education Requested by Patient: No Hx Alcohol Use: No Hx Substance Use: No Review of Systems Review of Systems: All systems reviewed & are unremarkable except as noted in HPI & below Constitutional: + fatigue, + weakness, + anorexia and + weight loss; no fever, no chills and no sweats Respiratory: + dyspnea on exertion; no cough, no chest congestion, no dyspnea and no wheezing Cardiovascular: + dyspnea on exertion and + edema; no chest pain, no chest pain at rest, no dyspnea, no orthopnea, no syncope and no calf pain Gastrointestinal: + nausea and + diarrhea/loose stools (just one or two episodes recently); no abdominal pain, no vomiting, no change in stools (denies seeing light colored stools) and no constipation Genitourinary: no dysuria, no difficulty urinating, no urinary frequency, no urinary hesitancy and no urinary urgency Musculoskeletal: no back pain and no neck pain Integumentary: + yellowing of the skin (daughter noticed two days ago, says she sees her every day); no rash Neurologic: + unsteadiness, + falls (fell once today) and + generalized weakness; no syncope Psychiatric: no depression and no anxiety Physical Exam Constitutional: WD/WN, vitals as above + frail appearing; + not appropriately hydrated (appears dry) Eyes: PERRL and EOM intact bilaterally; sclerae not anicteric (icterus) ENMT: external ear and nose normal, oropharynx normal Neck: trachea midline, no thyromegaly Respiratory: normal respiratory effort, lungs clear to auscultation Cardiovascular: Rate/Rhythm: regular rhythm and + bradycardic Heart Sounds: normal S1 and normal S2; no murmur Extremities: normal capillary refill and + pedal edema (trace bilaterally) Gastrointestinal (Abdomen): normal bowel sounds, soft, nontender, no hepatosplenomegaly Musculoskeletal: no cyanosis or clubbing, extremities motor strength 5/5 Skin: + turgor decreased and + jaundice; no rashes Trauma: no contusion Neurologic: patellar DTR's 2+ bilat, sensation intact and PERRL, EOMI, accommodation nl, no face palsy, no dysarthria Psychiatric: A+Ox3, euthymic affect Lymphatic: no cervical or axillary lymphadenopathy Results & Data Vital Signs (Past 12 Hours) Vital Signs Pulse Pulse Resp BP BP Pulse Ox 12/19/18 09:09 50 L 20 137/53 L 95 12/19/18 07:31 50 L 20 133/59 L 97 12/19/18 06:30 57 L 17 106/44 L 98 12/19/18 06:01 96 12/19/18 05:37 53 L 96/50 L 96 Laboratory Results Laboratory Results - last 24 hr 12/19/18 12/19/18 12/19/18 06:04 06:04 06:04 WBC 10.87 H RBC 4.31 Hgb 13.5 Hct 37.7 MCV 87.5 MCH 31.3 MCHC 35.8 RDW Std Deviation 67.7 H RDW Coeff of Rachna 22.3 H Plt Count 331 MPV 10.4 Immature Gran % (Auto) 0.3 Neut % (Auto) 68.4 Lymph % (Auto) 15.3 [place] % (Auto) 15.4 Eos % (Auto) 0.4 Baso % (Auto) 0.2 Immature Gran # (Auto) 0.03 H Neut # (Auto) 7.45 H Lymph # (Auto) 1.66 [place] # (Auto) 1.67 H Eos # (Auto) 0.04 Baso # (Auto) 0.02 Anisocytosis Present Target Cells 1+ PT 25.1 H INR 2.6 H APTT 30.6 PTT Ratio 1.1 Sodium 133 L Potassium 4.3 Chloride 102 Carbon Dioxide 21 Anion Gap 10.0 BUN 47 H Creatinine 1.78 H Est Cr Clr Drug Dosing 27.0 Est GFR ( Amer) 30.0 Est GFR (Non-Af Amer) 25.9 BUN/Creatinine Ratio 26.2 H Glucose 112 H Calcium 11.5 H Magnesium 2.2 Total Bilirubin 9.8 H AST 470 H ALT 126 H Alkaline Phosphatase 1249 H Troponin I 0.184 H* Total Protein 5.7 L Albumin 2.0 L Globulin 3.7 Albumin/Globulin Ratio 0.5 L Lipase [address] abdomen/pelvis IMPRESSION: 1. No acute posttraumatic abnormality of the abdomen or pelvis identified. 2. No acute fracture. 3. No bowel obstruction or focal bowel wall thickening. 4. Colonic diverticulosis without acute diverticulitis. 5. Gallbladder distention with wall thickening and suggested gallbladder sludge. Correlate clinically to exclude acute cholecystitis. 6. Cardiomegaly. 7. Unchanged right inguinal adenopathy. 8. Additional findings as above. Cervical spine CT IMPRESSION: No acute process. Considerable degenerative change. CT chest IMPRESSION: No significant abnormality identified within the chest. CT head Impression: No acute intracranial abnormality. ECG Indication: weakness Rhythm: sinus bradycardia Code Status & VTE Plan Code Status Full code VTE Prophylaxis Plan VTE Prophylaxis will be ordered: Yes (1) Fall Encounter type: initial encounter Qualified Code(s): W19.XXXA - Unspecified fall, initial encounter
[2018-12-19] MEDS ORDERED: PIPERACILL/TAZOBAC CONSULT ACTIVE PRN ×2 (10:56→18:26)
[2018-12-19] MEDS ORDERED: PIPERACILLIN/TAZOBACTAM 3.375 GM in DEXTROSE 5% 100 ML IV SCH (10:56)
[2018-12-19] MEDS ORDERED: PHYTONADIONE 5 MG in SODIUM CHLORIDE 0.9% 50 ML IV ONE ×2 (11:00→18:15)
[2018-12-19] MEDS ORDERED: PANTOprazole 40 MG TAB PO SCH (11:00)
[2018-12-19] MEDS ORDERED: PIPERACILLIN/TAZOBACTAM 4.5 GM in DEXTROSE 5% 100 ML IV ONE ×2 (12:00→18:45)
[2018-12-19 12:08] LABS: Appearance Urine Slightly Cloudy (Clear); Color Urine Orange; Protein Urine Positive (Negative); Specific Gravity Urine 1.041 (1.000-1.030)
[2018-12-19 12:11] LABS: Epithelial Cell Urine >30 /lpf (0-5); Mucus Urine Present (None Prsent)
[2018-12-19 12:13] LABS: Bacteria Urine 1+ (Negative); Calcium Oxalate Crystals Urine Present (None Prsent); RBC Urine 0-4 /hpf (0-4)
--- NOTE | 2018-12-19 12:52 | Magnetic Resonance Report ---
MR MRCP HISTORY: Elevated LFT, obstructive picture TECHNIQUE: MRCP of the abdomen was performed without the use of intravenous contrast according to [facility] departmental protocol. COMPARISON STUDY: Abdomen and pelvis CT 12/19/2018. FINDINGS: The heart is mildly enlarged. Mild body wall edema. The liver, spleen, adrenal glands, and pancreas are within normal limits. Mild perinephric edema which is likely chronic. A 4 mm T2 hyperint ense lesion within the lower pole of the left kidney. This favors a cyst. No hydronephrosis. A few sm all bilateral peripelvic renal cysts are noted. No retroperitoneal lymphadenopathy. The visualized lo ops of bowel show no wall thickening or obstruction. There is a 1.2 cm gallstone. Diffuse gallbladder wall thickening/edema. This measures up to 7 mm in thickness. The main pancreatic duct is normal in course and caliber. No filling defects within the common bile duct. There are few scattered cystic fo ci within the pancreas which appear to connect to the main pancreatic duct. The largest in the body o f the pancreas measures 8 mm. 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 Mild to moderate narrowing of the mid common bile duct secondary to mass effect from the pancreatic head. There is a slightly bulbous appearance to the pancreatic head, however, no definite masses identified on this study. IMPRESSION: 1. Cholelithiasis. There is also diffuse gallbladder wall thickening/edema. This favors reactive lee ge from the patient's diffuse edematous state or possibly underlying hepatic pathology. An acute chol ecystitis could also a similar appearance but is considered less likely. Clinical correlation recomme nded. 2. Mild to moderate narrowing of the mid common bile duct secondary to mass effect from the pancreati c head. There is a slightly bulbous appearance to the pancreatic head, however, no definite masses id entified on this study. Follow-up ERCP is recommended to exclude the possibility of an occult pancrea tic mass. Electronically signed by: Hari Amezcua M.D. 12/19/2018 12:51 PM
[2018-12-19 15:01] LABS: INR 2.6 (0.9-1.1); Prothrombin Time 24.6 Seconds (9.0-12.0)
--- NOTE | 2018-12-19 15:09 | Cardiology Consultation ---
Date of Consultation December 19, 2018 Assessment & Plan (1) Elevated troponin: Elevated troponin is only slightly elevated. Most likely cause seems to be subendocardial ischemia in the face of LVH. Patient denied any classical symptoms of ACS and echocardiogram today did not show any signs of acute ischemic disease. Will monitor serial troponin's. (2) LVH (left ventricular hypertrophy): Mild diastolic dysfunction on echocardiogram today and in August 2018. Caution using IV fluids going forward as patient has history of volume overload. She seems to have some mild pulmonary edema on exam today. There may be a need to restart Lasix in the future. Monitor I and O, daily weights. (3) Hypertension: Patient's blood pressures seem to be on the low side of normal or hypotensive. Agree with holding blood pressure medications at this time. (4) Hyperlipidemia: Agree with holding patients statin at this time do to underlying liver pathology/elevated LFTs. History of Present Illness Attending Physician: Toni Bradford, DO History of Present Illness Ms. Brownlee is a pleasant 83 year old female who presented to the emergency department this morning after a fall at her house. Cardiology was consulted because of her elevated troponin and recent onset of jaundice. She states that this morning at around 3:15 a.m. she was returning to her bedroom from the bathroom in her house when she suddenly became lightheaded and fell onto her b edroom floor. She states that she hit the back of her head. The lightheadedness only lasted seconds to minutes but she had a difficult time getting herself up off the floor. She did not have a syncopal episode. She was able to get herself up and presented to the ER due to fear of bleeding from her chronic anticoagulation usage. She denied any chest pain at that time. She admits to chronic shortness of breath with physical activity, even as minor as talking for a few minutes. She sleeps with a wedge pillow at night but states this is because of her GERD. She denies any orthopnea, PND, or palpitations. She does admit to lower extremity edema that has improved since the start of daily PO Lasix in August. She states that overall she has lost 20-30 pounds. Currently she feels fatigued but is overall asymptomatic. Her history of lightheadedness and syncope started back in September of 2018 when she had a syncopal episode that brought her into the hospital. Afterward, she saw Dr. Banegas who ordered a phototypesetting equipment monitor on her for the month of October. The phototypesetting equipment monitor showed normal sinus rhythm with episodes of sinus tachycardia and bradycardia. She had multiple pauses ranging from 2.0 seconds to 3.2 seconds in duration. She had episodes of nonsustained supraventricular tachycardia. She was mainly asymptomatic while wearing the event monitor. Her atenolol was stopped because of the multiple pauses and her amlodipine was reduced to 5 milligrams due to hypotension. An echo from August of 2018 showed normal systolic function with an ejection fraction of 65-70 percent, mild LVH, mild to moderate mitral regurgitation, moderate tricuspid regurgitation, severe pulmonary hypertension and a dilated inferior vena cava. Past Medical and Surgical History 1. Hypertension 2. Hyperlipidemia 3. Mitral regurgitation 4. Tricuspid regurgitation 5. Pulmonary hypertension 6. Left ventricular hypertrophy 7. Iron deficiency anemia 8. GERD 9. Osteopenia 10. Osteoarthritis 11. History of DVT/pulmonary embolism in 2003 12. Total abdominal hysterectomy 13. Right TKA in 2014 14. Chronic anticoagulation use Family History 1. Mother- at age 88 due to chronic heart failure 2. Father- in early 70s due to dissecting abdominal aortic aneurysm. History of myocardial infarction and CVA 3. Brother-history of myocardial infarction in early 70s. Alive at age 82 4. Sister-history of thoracic aortic aneurysm. Alive at age 76 5. Multiple family members with history of DVTs. Allergies Allergy/AdvReac Type Severity Reaction Status Date / Time Cephalosporins Allergy Mild KEFLEX=ITCH Verified 12/19/18 06:26 Y Sulfa (Sulfonamide Allergy Mild RASH Verified 12/19/18 06:26 Antibiotics) levofloxacin Allergy Unknown MUSCLE Verified 12/19/18 06:26 TEAR? Home Medications Home Medications Medication Instructions Recorded Confirmed Type acetaminophen 500 mg capsule 1,000 mg PO QAM cap 06/16/18 12/19/18 History atorvastatin 10 mg tablet 5 mg PO DAILY tab 06/16/18 12/19/18 History cholecalciferol (vitamin D3) 1,000 1,000 units PO DAILY 06/16/18 12/19/18 History unit capsule acetaminophen 500 mg capsule 500 mg PO PM cap 09/22/18 12/19/18 History ferrous sulfate 325 mg (65 mg 325 mg PO Q2D tab 09/22/18 12/19/18 History iron) tablet omeprazole 20 mg capsule,delayed 20 mg PO DAILY cap 09/22/18 12/19/18 History release ranitidine HCl [Zantac] 150 mg PO DAILY 10/12/18 12/19/18 History furosemide 20 mg tablet See Rx Instructions PO DAILY tab 10/27/18 12/19/18 History amlodipine 10 mg tablet 5 mg PO DAILY tab 12/11/18 12/19/18 History losartan 100 mg tablet 50 mg PO DAILY tab 12/11/18 12/19/18 History warfarin 4 mg tablet See Rx Instructions .ROUTE UD tab 12/15/18 12/19/18 History Patient History Medical History Pre-diabetes (Chronic) Basal cell carcinoma of nose (Resolved) Bronchitis (Resolved) History of hysterectomy (Resolved) Pulmonary embolism (Resolved) Surgical History History of knee replacement procedure of right knee (Resolved) Family History Brother Colorectal cancer Mother Breast cancer Father Liver cancer Social History Preferred Language: [place]ambican Communication Ability: Effective Airport Refueling Handler Required: No Beliefs That Will Affect Care: None Current Living Situation: Alone Other Information That Helps Us Care for You: No Feels Safe at Home: Yes Safety Concerns: Feels Safe At This Time Smoking Status: Never smoker Do You Dip or Chew Tobacco: No Second Hand Exposure: No Tobacco Cessation Education Requested by Patient: No Hx Alcohol Use: No Hx Substance Use: No Physical Exam Physical Exam: General: Obese female, well-developed well-nourished. In no acute distress. HEENT: Icterus, otherwise negative. Neck: Neck is supple with full carotid upstrokes. No bruits auscultated. JVD is flat at the level of the clavicle. No thyromegaly. Cardiac: Regular rate and rhythm. S1-S2 auscultated. No S3 or S4, murmurs, rubs, gallops, lifts, heaves, or thrills. Lungs: Lung sounds auscultated in all ochoa bilaterally. Mild inspiratory crackles heard in bilateral lower lobes. No rhonchi or wheezes. Abdomen: Jaundice. Abdomen obese and soft without bruits Extremities: 1+ pretibial edema bilaterally. Intact radial and posterior tibial artery pulses bilaterally. Results & Data Vital Signs (Past 12 Hours) Vital Signs Temp Pulse Pulse Resp BP BP Pulse Ox 12/19/18 10:56 36.8 C 50 L 22 115/57 L 99 12/19/18 09:09 50 L 20 137/53 L 95 12/19/18 07:31 50 L 20 133/59 L 97 12/19/18 06:30 57 L 17 106/44 L 98 12/19/18 06:01 96 12/19/18 05:37 53 L 96/50 L 96 Laboratory Results Laboratory Results - last 24 hr 12/19/18 12/19/18 12/19/18 06:04 06:04 06:04 WBC 10.87 H RBC 4.31 Hgb 13.5 Hct 37.7 MCV 87.5 MCH 31.3 MCHC 35.8 RDW Std Deviation 67.7 H RDW Coeff of Rachna 22.3 H Plt Count 331 MPV 10.4 Immature Gran % (Auto) 0.3 Neut % (Auto) 68.4 Lymph % (Auto) 15.3 [place] % (Auto) 15.4 Eos % (Auto) 0.4 Baso % (Auto) 0.2 Immature Gran # (Auto) 0.03 H Neut # (Auto) 7.45 H Lymph # (Auto) 1.66 [place] # (Auto) 1.67 H Eos # (Auto) 0.04 Baso # (Auto) 0.02 Anisocytosis Present Target Cells 1+ PT 25.1 H INR 2.6 H APTT 30.6 PTT Ratio 1.1 Sodium 133 L Potassium 4.3 Chloride 102 Carbon Dioxide 21 Anion Gap 10.0 BUN 47 H Creatinine 1.78 H Est Cr Clr Drug Dosing 27.0 Est GFR ( Amer) 30.0 Est GFR (Non-Af Amer) 25.9 BUN/Creatinine Ratio 26.2 H Glucose 112 H Calcium 11.5 H Magnesium 2.2 Total Bilirubin 9.8 H Direct Bilirubin AST 470 H ALT 126 H Alkaline Phosphatase 1249 H Troponin I 0.184 H* NT-Pro-B Natriuret Pep Total Protein 5.7 L Albumin 2.0 L Globulin 3.7 Albumin/Globulin Ratio 0.5 L Lipase 442 H Urine Color Urine Appearance Urine pH Ur Specific [place] Urine Protein Urine Glucose (UA) Urine Ketones Urine Blood Urine Nitrite Urine Bilirubin Urine Urobilinogen Ur Leukocyte Esterase Urine RBC Urine WBC Ur Epithelial Cells Calcium Oxalate Crystal Urine Bacteria Hyaline Casts Urine Mucus 12/19/18 12/19/18 12/19/18 11:40 14:13 14:13 WBC RBC Hgb Hct MCV MCH MCHC RDW Std Deviation RDW Coeff of Rachna Plt Count MPV Immature Gran % (Auto) Neut % (Auto) Lymph % (Auto) [place] % (Auto) Eos % (Auto) Baso % (Auto) Immature Gran # (Auto) Neut # (Auto) Lymph # (Auto) [place] # (Auto) Eos # (Auto) Baso # (Auto) Anisocytosis Target Cells PT INR APTT PTT Ratio Sodium 134 L Potassium 4.5 Chloride 104 Carbon Dioxide 19 L Anion Gap 11.0 BUN 45 H Creatinine 1.60 H Est Cr Clr Drug Dosing 30.0 Est GFR ( Amer) 34.2 Est GFR (Non-Af Amer) 29.5 BUN/Creatinine Ratio 28.1 H Glucose 83 Calcium 11.4 H Magnesium Total Bilirubin Direct Bilirubin 7.9 H AST 456 H ALT 125 H Alkaline Phosphatase Troponin I NT-Pro-B Natriuret Pep Cancelled Total Protein Albumin 1.9 L Globulin Albumin/Globulin Ratio Lipase Urine Color [place] Urine Appearance Slightly Cloudy H Urine pH Ur Specific [place] 1.041 H Urine Protein Positive H Urine Glucose (UA) Urine Ketones Urine Blood Urine Nitrite Urine Bilirubin Urine Urobilinogen Ur Leukocyte Esterase Urine RBC 0-4 Urine WBC 5-10 H Ur Epithelial Cells >30 H Calcium Oxalate Crystal Present H Urine Bacteria 1+ H Hyaline Casts 10-30 H Urine Mucus Present H 12/19/18 12/19/18 14:13 14:13 WBC RBC Hgb Hct MCV MCH MCHC RDW Std Deviation RDW Coeff of Rachna Plt Count MPV Immature Gran % (Auto) Neut % (Auto) Lymph % (Auto) [place] % (Auto) Eos % (Auto) Baso % (Auto) Immature Gran # (Auto) Neut # (Auto) Lymph # (Auto) [place] # (Auto) Eos # (Auto) Baso # (Auto) Anisocytosis Target Cells PT 24.6 H INR 2.6 H APTT PTT Ratio Sodium Potassium Chloride Carbon Dioxide Anion Gap BUN Creatinine Est Cr Clr Drug Dosing Est GFR ( Amer) Est GFR (Non-Af Amer) BUN/Creatinine Ratio Glucose Calcium Magnesium Total Bilirubin Direct Bilirubin AST ALT Alkaline Phosphatase Troponin I 0.274 H* NT-Pro-B Natriuret Pep Total Protein Albumin Globulin Albumin/Globulin Ratio Lipase Urine Color Urine Appearance Urine pH Ur Specific [place] Urine Protein Urine Glucose (UA) Urine Ketones Urine Blood Urine Nitrite Urine Bilirubin Urine Urobilinogen Ur Leukocyte Esterase Urine RBC Urine WBC Ur Epithelial Cells Calcium Oxalate Crystal Urine Bacteria Hyaline Casts Urine Mucus Troponin I is 0.184 on 12/19 at 06:04. Troponin I is 0.274 on 12/19 at 14:13. ProBNP elevated at 5171. INR 2.6 Creatinine elevated at 1.78 when compared to creatinine of 0.74 drawn on November 06. Diagnostic Findings Echocardiogram done on 12/19 showed normal left ventricular systolic function with an ejection fraction of 60-65 percent, no regional wall motion abnormalities, mild LVH, mild to moderate mitral regurgitation tricuspid regurgitation, pulmonary hypertension. Relatively unchanged from echocardiogram in August of 2018 ECG Additional Comments: EKG on 12/19 showed a sinus rhythm with multiple premature atrial contractions, poor R-wave progression through the precordial leads, minimum criteria for LVH. (1) Hypertension Hypertension type: essential hypertension Qualified Code(s): I10 - Essential (primary) hypertension (2) Hyperlipidemia Hyperlipidemia type: unspecified Qualified Code(s): E78.5 - Hyperlipidemia, unspecified
[2018-12-19 15:13] LABS: Albumin Level 1.9 gm/dl (3.4-5.0); BUN Creatinine Ratio 28.1 (10-20); Bilirubin Direct 7.9 mg/dl (0-0.2); Calcium 11.4 mg/dl (8.5-10.1); Est GFR (African American) 34.2; Est GFR (Non-African American) 29.5; Potassium 4.5 mmol/L (3.5-5.1)
[2018-12-19] MEDS ORDERED: Nursing to Pharmacy Communication ONE (15:29)
[2018-12-19 15:37] LABS: Bilirubin,Total 10.3 mg/dl (0.2-1); Total Protein 5.6 gm/dl (6.4-8.2)
[2018-12-19] MEDS: ONDANSETRON INJ 2 MG/ML 2 ML VIAL IV PRN (16:47)
[2018-12-19] MEDS ORDERED: DOPamine 400MG / 250ML D5W IV ONE (17:12)
[2018-12-19] MEDS: DOPAMINE / D5W 400 MG/250 ML BAG IV SCH ×3 (17:25→22:09)
[2018-12-19] MEDS ORDERED: ATROPINE SULFATE 0.1 MG/ML 10ML SYR IV PRN (17:42)
[2018-12-19] MEDS ORDERED: PIPERACILLIN/TAZOBACTAM 4.5 GM in DEXTROSE 5% 100 ML IV SCH (18:00)
[2018-12-19] MEDS: NOREPINEPHRINE BIT INJ 8 MG in DEXTROSE 5% 500 ML IV SCH (18:39)
--- NOTE | 2018-12-19 18:40 | XRay Report ---
SINGLE VIEW CHEST CLINICAL HISTORY: Central venous catheter placement. FINDINGS: An AP, portable, upright chest radiograph is compared to study dated 10/12/2018 and correlat ed with chest CT dated 12/19/2018. The examination is degraded by portable technique and patient rotati on. A right subclavian central venous catheter has been placed. The tip projects over the SVC. The h eart is enlarged and there is atherosclerotic calcification of the thoracic aorta. There is pulmonary vascular congestion. Enlargement of the central pulmonary vessels suggests pulmonary artery hyperten man. Chronic interstitial thickening is similar to previous. No airspace consolidation or large pleu ral effusion is identified. No pneumothorax is seen. The skeletal structures are osteopenic. The bony thorax is grossly intact. IMPRESSION: 1. A right subclavian central venous catheter has been placed as detailed above. No pneumothorax is s een post procedure. 2. Cardiomegaly with pulmonary vascular congestion. This may be chronic. 3. No airspace consolidation or large pleural effusion is identified. Electronically signed by: Geovany Douglass M.D. 12/19/2018 6:39 PM
--- NOTE | 2018-12-19 19:01 | Critical Care Consultation ---
Date of Consultation December 19, 2018 Assessment & Plan (1) Shock: Neuro- awake alert now but mental status fluctuating when her blood pressure is down CV- bradycardia with pauses will likely need pacemaker. keep on pacer pads. shock. unclear cause. echo today without cause. ?hypovolemia/bleeding vs sepsis. careful fluids. dopamine to help her HR and norepinephrine for blood pressure. troponin elevated unclear significance Pulmonary- sat well on NC. ID- no clear infection but with hypotension continue empiric abx in case this is sepsis Renal- acute renal failure prerenal vs ATN. watch UOP. careful fluids. ABG with metabolic acidosis GI- elevated bilirubin, Alk phos and LFTs was planned for ERCP today once INR down. vomited about 50 ml of blood. pantoprazole drip. watch for further bleeding. NPO except ice chips Heme- coagulopathy due to warfarin s/p vit K Endocrine- blood sugars controlled Dispo- transfer to ICU for hemodynamic monitoring I have personally spent 80 minutes of critical care time in the direct management of this patient. This is a life/limb threatening event. This includes time spent evaluating patient, direct bedside care, chart review, placing orders, interpretation of diagnostic studies, discussion with consultants, patient, and/or family members regarding treatment decisions, as well as other required patient management activities. This time is exclusive of all separately billable procedures, and teaching time and separate from and in addition to any other critical care service time. History of Present Illness Attending Physician: Toni Bradford DO History of Present Illness 83 y/o female with a history of LVH, HTN, hyperlipidemia, PE presented after a fall early this morning she got up to use the bathroom and was lightheaded and she fell. her family also noticed that she was jaundiced. She was found to have elevated bilirubin and elevated LFTs. She was admitted and today she was code p urple(SERVER SUPPORT TECHNICIAN) due to bradycardia and pause of 6 seconds. nurse was present and patient became unresponsive had had 2 pushs of CPR, atropine and epi x1 and the patient woke up. once medications wore off she became hypotensive. She was having episodes of staring but responded appropriately. she was started on dopamine and she was transfered to the ICU Allergies Allergy/AdvReac Type Severity Reaction Status Date / Time Cephalosporins Allergy Mild KEFLEX=ITCH Verified 12/19/18 06:26 Y Sulfa (Sulfonamide Allergy Mild RASH Verified 12/19/18 06:26 Antibiotics) levofloxacin Allergy Unknown MUSCLE Verified 12/19/18 06:26 TEAR? Home Medications Home Medications Medication Instructions Recorded Confirmed Type acetaminophen 500 mg capsule 1,000 mg PO QAM cap 06/16/18 12/19/18 History atorvastatin 10 mg tablet 5 mg PO DAILY tab 06/16/18 12/19/18 History cholecalciferol (vitamin D3) 1,000 1,000 units PO DAILY 06/16/18 12/19/18 History unit capsule acetaminophen 500 mg capsule 500 mg PO PM cap 09/22/18 12/19/18 History ferrous sulfate 325 mg (65 mg 325 mg PO Q2D tab 09/22/18 12/19/18 History iron) tablet omeprazole 20 mg capsule,delayed 20 mg PO DAILY cap 09/22/18 12/19/18 History release ranitidine HCl [Zantac] 150 mg PO DAILY 10/12/18 12/19/18 History furosemide 20 mg tablet See Rx Instructions PO DAILY tab 10/27/18 12/19/18 History amlodipine 10 mg tablet 5 mg PO DAILY tab 12/11/18 12/19/18 History losartan 100 mg tablet 50 mg PO DAILY tab 12/11/18 12/19/18 History warfarin 4 mg tablet See Rx Instructions .ROUTE UD tab 12/15/18 12/19/18 History Patient History Medical History Pre-diabetes (Chronic) Basal cell carcinoma of nose (Resolved) Bronchitis (Resolved) History of hysterectomy (Resolved) Pulmonary embolism (Resolved) Surgical History History of knee replacement procedure of right knee (Resolved) Family History Brother Colorectal cancer Mother Breast cancer Father Liver cancer Social History Preferred Language: [place]ian Communication Ability: Effective Guest History Clerk Required: No Beliefs That Will Affect Care: None Current Living Situation: Alone Other Information That Helps Us Care for You: No Feels Safe at Home: Yes Safety Concerns: Feels Safe At This Time Smoking Status: Never smoker Do You Dip or Chew Tobacco: No Second Hand Exposure: No Tobacco Cessation Education Requested by Patient: No Hx Alcohol Use: No Hx Substance Use: No Review of Systems Review of Systems: Constitutional: no fevers no chills no weight loss Eyes: + blurry vision no double vision EENT: no sore throat, no congestion Respiratory: no cough no shortness of breath Cardiovascular: no chest pain no palpitations GI: no abdominal pain, + nausea, + vomiting, no diarrhea, no constipation. +hemetemesis Gu: no dysuria, no frequency MSK: no joint pain, no muscle aches Skin: no rash Neuro: + headache, + dizziness, no focal weakness Endocrine: no heat or cold intolerance heme: + easy bruising, no lymphadenopathy Physical Exam Physical Exam: Constitutional: pale and ill appearing. HEENT: normocephalic atraumatic. dry mucus membranes. no cervical lymphadenopathy CV: bradycardia nl s1,s2 no murmurs rubs or gallops Lungs: slight crackles bilaterally. no accessory muscle use Abd: soft nontender nondistended. normal bowel sounds Ext: + LE edema. no cyanosis, no clubbing Skin: cool dry Neuro: fluctuating mental status sometimes awake alert and sometimes confused. moving all extremities Psych: normal mood and affect Results & Data Vital Signs (Past 12 Hours) Vital Signs Temp Pulse Resp BP Pulse Ox 12/19/18 16:49 117 H 16 133/74 99 12/19/18 15:12 36.2 C L 49 L 18 103/45 L 98 12/19/18 10:56 36.8 C 50 L 22 115/57 L 99 12/19/18 09:09 50 L 20 137/53 L 95 12/19/18 07:31 50 L 20 133/59 L 97 Laboratory Results Laboratory Results - last 24 hr 12/19/18 12/19/18 12/19/18 06:04 06:04 06:04 WBC 10.87 H RBC 4.31 Hgb 13.5 Hct 37.7 MCV 87.5 MCH 31.3 MCHC 35.8 RDW Std Deviation 67.7 H RDW Coeff of Rachna 22.3 H Plt Count 331 MPV 10.4 Immature Gran % (Auto) 0.3 Neut % (Auto) 68.4 Lymph % (Auto) 15.3 [place] % (Auto) 15.4 Eos % (Auto) 0.4 Baso % (Auto) 0.2 Immature Gran # (Auto) 0.03 H Neut # (Auto) 7.45 H Lymph # (Auto) 1.66 [place] # (Auto) 1.67 H Eos # (Auto) 0.04 Baso # (Auto) 0.02 Anisocytosis Present Target Cells 1+ PT 25.1 H INR 2.6 H APTT 30.6 PTT Ratio 1.1 Sodium 133 L Potassium 4.3 Chloride 102 Carbon Dioxide 21 Anion Gap 10.0 BUN 47 H Creatinine 1.78 H Est Cr Clr Drug Dosing 27.0 Est GFR ( Amer) 30.0 Est GFR (Non-Af Amer) 25.9 BUN/Creatinine Ratio 26.2 H Glucose 112 H Calcium 11.5 H Magnesium 2.2 Total Bilirubin 9.8 H Direct Bilirubin AST 470 H ALT 126 H Alkaline Phosphatase 1249 H Troponin I 0.184 H* NT-Pro-B Natriuret Pep Total Protein 5.7 L Albumin 2.0 L Globulin 3.7 Albumin/Globulin Ratio 0.5 L Lipase 442 H Urine Color Urine Appearance Urine pH Ur Specific [place] Urine Protein Urine Glucose (UA) Urine Ketones Urine Blood Urine Nitrite Urine Bilirubin Urine Urobilinogen Ur Leukocyte Esterase Urine RBC Urine WBC Ur Epithelial Cells Calcium Oxalate Crystal Urine Bacteria Hyaline Casts Urine Mucus 12/19/18 12/19/18 12/19/18 11:40 14:13 14:13 WBC RBC Hgb Hct MCV MCH MCHC RDW Std Deviation RDW Coeff of Rachna Plt Count MPV Immature Gran % (Auto) Neut % (Auto) Lymph % (Auto) [place] % (Auto) Eos % (Auto) Baso % (Auto) Immature Gran # (Auto) Neut # (Auto) Lymph # (Auto) [place] # (Auto) Eos # (Auto) Baso # (Auto) Anisocytosis Target Cells PT INR APTT PTT Ratio Sodium 134 L Potassium 4.5 Chloride 104 Carbon Dioxide 19 L Anion Gap 11.0 BUN 45 H Creatinine 1.60 H Est Cr Clr Drug Dosing 30.0 Est GFR ( Amer) 34.2 Est GFR (Non-Af Amer) 29.5 BUN/Creatinine Ratio 28.1 H Glucose 83 Calcium 11.4 H Magnesium Total Bilirubin 10.3 H Direct Bilirubin 7.9 H AST 456 H ALT 125 H Alkaline Phosphatase 1174 H Troponin I NT-Pro-B Natriuret Pep Cancelled Total Protein 5.6 L Albumin 1.9 L Globulin Albumin/Globulin Ratio Lipase Urine Color [place] Urine Appearance Slightly Cloudy H Urine pH Ur Specific [place] 1.041 H Urine Protein Positive H Urine Glucose (UA) Urine Ketones Urine Blood Urine Nitrite Urine Bilirubin Urine Urobilinogen Ur Leukocyte Esterase Urine RBC 0-4 Urine WBC 5-10 H Ur Epithelial Cells >30 H Calcium Oxalate Crystal Present H Urine Bacteria 1+ H Hyaline Casts 10-30 H Urine Mucus Present H 12/19/18 12/19/18 14:13 14:13 WBC RBC Hgb Hct MCV MCH MCHC RDW Std Deviation RDW Coeff of Rachna Plt Count MPV Immature Gran % (Auto) Neut % (Auto) Lymph % (Auto) [place] % (Auto) Eos % (Auto) Baso % (Auto) Immature Gran # (Auto) Neut # (Auto) Lymph # (Auto) [place] # (Auto) Eos # (Auto) Baso # (Auto) Anisocytosis Target Cells PT 24.6 H INR 2.6 H APTT PTT Ratio Sodium Potassium Chloride Carbon Dioxide Anion Gap BUN Creatinine Est Cr Clr Drug Dosing Est GFR ( Amer) Est GFR (Non-Af Amer) BUN/Creatinine Ratio Glucose Calcium Magnesium Total Bilirubin Direct Bilirubin AST ALT Alkaline Phosphatase Troponin I 0.274 H* NT-Pro-B Natriuret Pep Total Protein Albumin Globulin Albumin/Globulin Ratio Lipase Urine Color Urine Appearance Urine pH Ur Specific [place] Urine Protein Urine Glucose (UA) Urine Ketones Urine Blood Urine Nitrite Urine Bilirubin Urine Urobilinogen Ur Leukocyte Esterase Urine RBC Urine WBC Ur Epithelial Cells Calcium Oxalate Crystal Urine Bacteria Hyaline Casts Urine Mucus Diagnostic Findings reviewed CT chest, abd/pelvis, head and MRCP
[2018-12-19 19:32] LABS: iSTAT Allen Test Pass; iSTAT Arterial Blood Gas HCO3 14 meg/L (19-24); iSTAT Arterial Blood Gas pCO2 30 mmHg (35-46); iSTAT Arterial Blood Gas pH 7.28 (7.35-7.45); iSTAT Carbon Dioxide 15 mEq/l (24-31); iSTAT Site R Radial
[2018-12-19] MEDS ORDERED: LACTATED RINGER'S 1,000 ML IV ONE (19:39)
[2018-12-19] MEDS: PANTOprazole 40 MG in DEXTROSE 5% 100 ML IV SCH (19:40)
--- NOTE | 2018-12-19 19:46 | Procedure Note ---
Procedure Note Date of Service December 19, 2018 Note R subclavian central line placement after informed consent using full sterile precautions - cap, mask, gown and gloves. full drape site anesthetized with 1% lidocaine using landmarks R subclavian vein was accessed and triple lumen catheter placed using seldinger technique. good flow in all ports sutured in place and tegaderm placed placement confirmed on CXR pt tolerated procedure well Coding
[2018-12-19 19:55] LABS: Hematocrit (blood only) 34.2 % (37-47); Hemoglobin 12.7 g/dL (12.0-16.0); Mean Corpuscular Volume 86.4 fL (80-100); Mean Platelet Volume 10.8 fL (7.4-10.4); Nucleated RBC # (auto) 0.02 K/uL (0-0); Nucleated RBC % (auto) 0.1 %; Platelet Count 296 K/uL (130-400); RDW Coefficient of Variation 22.5 % (11.5-14.5); RDW Standard Deviation 67.9 fL (36.4-46.3); Red Blood Count 3.96 M/uL (4.2-5.4)
[2018-12-19 19:57] LABS: Mean Corpuscular Hgb Conc 37.1 g/dL (32-36)
[2018-12-19 20:05] LABS: Fibrinogen 242 mg/dl (184-400); INR 2.7 (0.9-1.1); Partial Thromboplastin Ratio 1.2; Partial Thromboplastin Time 31.6 Seconds (21.0-31.0); Prothrombin Time 25.7 Seconds (9.0-12.0)
[2018-12-19 20:29] LABS: Anisocytosis Present; Basophils # (auto) 0.03 K/uL (0-0.2); Basophils % (auto) 0.2 %; Echinocytes 1+; Eosinophils # (auto) 0.05 K/uL (0-0.5); Eosinophils % (auto) 0.4 %; Immature Granulocytes # (auto) 0.08 K/uL (0.00-0.02); Immature Granulocytes % (auto) 0.6 %; Lymphocytes # (auto) 1.28 K/uL (1.2-3.4); Lymphocytes % (auto) 9.2 %; Monocytes # (auto) 1.78 K/uL (0.11-0.59); Monocytes % (auto) 12.8 %; Neutrophils # (auto) 10.68 K/uL (1.4-6.5); Neutrophils % (auto) 76.8 %; Target Cells 1+; Tear Drop Cells 1+
[2018-12-19 20:43] LABS: Calcium 10.8 mg/dl (8.5-10.1); Creatinine Clr Calc Pharmacy 27.3 ml/min; Est GFR (African American) 30.5; Est GFR (Non-African American) 26.3
[2018-12-19 20:44] LABS: BUN Creatinine Ratio 26.9 (10-20); Magnesium 2.2 mg/dl (1.8-2.4); Potassium 4.3 mmol/L (3.5-5.1); Troponin I 0.297 ng/ml (0-0.045)
--- NOTE | 2018-12-19 21:10 | Procedure Note ---
Procedure Note Date of Service December 19, 2018 Procedure: Arterial Line Placement Attending: Dr. Alan APC: Darvin Hutchison PA-C Indication: Monitoring on Pressors Anesthesia: Lidocaine 1% Emergent consent implied in the setting of increasing pressor requirement, need for frequent lab draws, assessment of ABGs with concerns of acid/base balancing. A time-out was completed verifying correct patient, procedure, site, positioning, and implant(s) or special equipment if applicable. Allens test was performed to ensure adequate perfusion. Patients RIGHT wrist was prepped and draped in the usual sterile fashion. Ultrasound guidance was used to aid needle placement. A 20g Arrow arterial line was introduced into the RIGHT artery. This attempt did take 4 sticks as each time there was successful cannulation of the vessel without blood return or ability to advance wire. Catheter was threaded, and the needle was removed with appropriate blood return. Good waveform was observed. The patient tolerated the procedure well. Confirmation of placement with ultrasound. Blood Loss: Minimal Complications: None Procedural Ultrasound Guidance: Procedure Date: 12/19/2018 Indication: ABGs, Lab Draws, Pressors Attending: Dr. Aaln APC: Darvin Hutchison PA-C Artery Identified: YES Line confirmed in Artery with ultrasound: YES Complications: NONE Patient tolerated procedure: WELL Coding
[2018-12-19 23:02] LABS: Hematocrit (blood only) 34.9 % (37-47); Hemoglobin 12.3 g/dL (12.0-16.0)
[2018-12-20] MEDS: LACTATED RINGER'S 1,000 ML IV SCH ×3 (00:50→14:55)
[2018-12-20] MEDS: PANTOprazole 40 MG in DEXTROSE 5% 100 ML IV SCH ×5 (00:50→19:47)
[2018-12-20] MEDS: PIPERACILLIN/TAZOBACTAM 4.5 GM in DEXTROSE 5% 100 ML IV SCH ×2 (02:07→08:16)
[2018-12-20] MEDS: DOPAMINE / D5W 400 MG/250 ML BAG IV SCH ×4 (02:08→17:39)
[2018-12-20 04:52] LABS: iSTAT Arterial Blood Gas HCO3 13 meg/L (19-24); iSTAT Arterial Blood Gas pCO2 24 mmHg (35-46); iSTAT Arterial Blood Gas pH 7.36 (7.35-7.45); iSTAT Carbon Dioxide 14 mEq/l (24-31); iSTAT Site Art Line
[2018-12-20 04:57] LABS: Basophils # (auto) 0.03 K/uL (0-0.2); Basophils % (auto) 0.2 %; Immature Granulocytes # (auto) 0.06 K/uL (0.00-0.02); Immature Granulocytes % (auto) 0.3 %; Lymphocytes # (auto) 1.71 K/uL (1.2-3.4); Lymphocytes % (auto) 9.9 %; Mean Corpuscular Hgb Conc 35.3 g/dL (32-36); Mean Corpuscular Volume 88.3 fL (80-100); Mean Platelet Volume 11.4 fL (7.4-10.4); Monocytes # (auto) 2.85 K/uL (0.11-0.59); Monocytes % (auto) 16.5 %; Neutrophils # (auto) 12.59 K/uL (1.4-6.5); Neutrophils % (auto) 73.1 %; Platelet Count 293 K/uL (130-400); RDW Coefficient of Variation 22.5 % (11.5-14.5); RDW Standard Deviation 68.6 fL (36.4-46.3); Red Blood Count 3.85 M/uL (4.2-5.4); White Blood Count 17.24 K/uL (4.8-10.8)
[2018-12-20 05:05] LABS: INR 2.7 (0.9-1.1); Prothrombin Time 25.5 Seconds (9.0-12.0)
[2018-12-20 05:33] LABS: Albumin Level 1.7 gm/dl (3.4-5.0); BUN Creatinine Ratio 23.4 (10-20); Bilirubin,Total 10.1 mg/dl (0.2-1); Calcium 10.6 mg/dl (8.5-10.1); Creatinine Clr Calc Pharmacy 22.5 ml/min; Est GFR (Non-African American) 20.8; Phosphorus 4.8 mg/dl (2.5-4.9); Potassium 4.7 mmol/L (3.5-5.1); Total Protein 4.9 gm/dl (6.4-8.2)
[2018-12-20 05:38] LABS: Anisocytosis Present; Echinocytes 1+; Target Cells 1+
[2018-12-20] MEDS ORDERED: LACTATED RINGER'S 500 ML IV ONE (05:40)
[2018-12-20 06:04] LABS: Lyme Ab IgG w/WB Rflx Negative (Negative); Lyme Ab IgM w/WB Rflx Negative (Negative)
[2018-12-20] MEDS ORDERED: VANCOMYCIN CONSULT ACTIVE PRN (07:22)
[2018-12-20] MEDS ORDERED: VANCOMYCIN HCL 2,000 MG in SODIUM CHLORIDE 0.9% 500 ML IV ONE (07:30)
--- NOTE | 2018-12-20 07:38 | Critical Care Progress Note ---
Date of Service December 20, 2018 Assessment & Plan (1) Shock: Neuro- mental status worse likely metabolic encephalopathy from shock possibly sepsis CV- shock at this point most likely septic. requiring increasing vasopressor support. continue norepinephrine add vasopressin. bradycardia with pauses will likely need eventual pacemaker. keep on pacer pads. titrate down dopamine if HR allows. troponin elevated unclear significance. add steroids for sepsis. lactic acid remains elevated suggesting continued poor perfusion. repeat bedside ultrasound this morning with normal LV and RV function. IVC 1.8 cm Pulmonary- sat well on NC. ID- no clear infectius source. possibly biliary continue empiric abx with piperacillin-tazobactam. add vancomycin. follow cultures Renal- acute renal failure prerenal vs ATN. cr worse poor UOP. careful fluids. ABG with compensated metabolic acidosis GI- elevated bilirubin, Alk phos and LFTs was planned for ERCP today once INR down. ?cholangitis but no pain or fevers. vs cholecytisis. may need more urgent ERCP or pecutanous drain for source control. vomited about 50 ml of blood but no other signs bleeding and hgb remained stable. pantoprazole drip. watch for further bleeding. NPO Heme- coagulopathy due to warfarin vs liver disease s/p vit K. may need FFP for procedures Endocrine- blood sugars controlled Dispo- monitor in ICU for hemodynamic suppot I have personally spent 80 minutes of critical care time in the direct managem ent of this patient. This is a life/limb threatening event. This includes time spent evaluating patient, direct bedside care, chart review, placing orders, interpretation of diagnostic studies, discussion with consultants, patient, and/or family members regarding treatment decisions, as well as other required patient management activities. This time is exclusive of all separately billable procedures, and teaching time and separate from and in addition to any other critical care service time. Subjective overnight requiring increasing vasopressors mental status worsening poor urine output Physical Exam Physical Exam: Constitutional: pale and ill appearing. HEENT: normocephalic atraumatic. dry mucus membranes. CV: RRR nl s1,s2 no murmurs rubs or gallops Lungs: slight crackles bilaterally. no accessory muscle use Abd: soft nontender nondistended. Ext: + LE edema. no cyanosis, no clubbing Skin: cool dry. jaundice Neuro: awake but confused. moving all extremities Psych: Results & Data Vital Signs (Past 12 Hours) Vital Signs Temp Pulse Resp BP Pulse Ox 12/20/18 04:31 69 32 H 107/34 L 96 12/20/18 04:16 73 29 H 107/36 L 97 12/20/18 04:01 73 22 113/36 L 98 12/20/18 03:46 73 31 H 89/61 L 97 12/20/18 03:31 74 29 H 106/38 L 96 12/20/18 03:16 75 26 H 110/40 L 97 12/20/18 03:01 74 24 108/35 L 98 12/20/18 02:46 75 18 103/39 L 98 12/20/18 02:31 73 19 103/36 L 97 12/20/18 02:16 73 13 102/36 L 98 12/20/18 02:01 74 28 H 105/34 L 96 12/20/18 01:46 75 16 109/35 L 95 12/20/18 01:31 74 28 H 112/37 L 95 12/20/18 01:28 76 18 123/38 L 94 12/20/18 01:17 73 17 111/34 L 94 12/20/18 01:01 78 11 L 99/33 L 99 12/20/18 00:46 76 21 112/36 L 97 12/20/18 00:31 75 17 104/33 L 100 12/20/18 00:16 74 26 H 120/37 L 100 12/20/18 00:01 77 24 115/31 L 97 12/19/18 23:46 76 16 114/48 L 100 12/19/18 23:31 77 13 106/37 L 98 12/19/18 23:17 75 20 112/33 L 100 12/19/18 23:01 75 23 92/56 L 99 12/19/18 22:46 77 24 108/38 L 99 12/19/18 22:31 78 22 117/35 L 99 12/19/18 22:16 76 21 126/36 L 100 12/19/18 22:01 81 17 92/49 L 94 12/19/18 21:46 78 18 111/33 L 94 12/19/18 21:31 78 18 114/36 L 83 L 12/19/18 21:16 77 32 H 80/52 L 84 L 12/19/18 21:01 75 20 104/36 L 80 L 12/19/18 20:56 80 17 107/34 L 86 L 12/19/18 20:46 76 21 101/36 L 99 12/19/18 20:31 36.6 C 77 17 113/35 L 94 12/19/18 20:16 78 20 104/42 L 96 12/19/18 20:01 79 19 108/37 L 78 L Laboratory Results Laboratory Results - last 24 hr 12/19/18 12/19/18 12/19/18 11:40 14:13 14:13 WBC RBC Hgb Hct MCV MCH MCHC RDW Std Deviation RDW Coeff of Rachna Plt Count MPV Immature Gran % (Auto) Neut % (Auto) Lymph % (Auto) Dickson % (Auto) Eos % (Auto) Baso % (Auto) Immature Gran # (Auto) Neut # (Auto) Lymph # (Auto) Dickson # (Auto) Eos # (Auto) Baso # (Auto) Absolute Nucleated RBC Nucleated RBC % (auto) Anisocytosis Target Cells Tear Drop Cells Echinocytes PT INR APTT PTT Ratio Fibrinogen Sample Site POC pH POC pCO2 POC pO2 POC HCO3 POC Total CO2 POC Base Excess POC ABG O2 Sat Jamie Test O2 Delivery Device Sodium 134 L Potassium 4.5 Chloride 104 Carbon Dioxide 19 L Anion Gap 11.0 BUN 45 H Creatinine 1.60 H Est Cr Clr Drug Dosing 30.0 Est GFR ( Amer) 34.2 Est GFR (Non-Af Amer) 29.5 BUN/Creatinine Ratio 28.1 H Glucose 83 Lactate Calcium 11.4 H Phosphorus Magnesium Total Bilirubin 10.3 H Direct Bilirubin 7.9 H AST 456 H ALT 125 H Alkaline Phosphatase 1174 H Troponin I NT-Pro-B Natriuret Pep Cancelled 7321 H Total Protein 5.6 L Albumin 1.9 L Lipase Specimen Hemolysis Urine Color [place] Urine Appearance Slightly Cloudy H Urine pH Ur Specific [place] 1.041 H Urine Protein Positive H Urine Glucose (UA) Urine Ketones Urine Blood Urine Nitrite Urine Bilirubin Urine Urobilinogen Ur Leukocyte Esterase Urine RBC 0-4 Urine WBC 5-10 H Ur Epithelial Cells >30 H Calcium Oxalate Crystal Present H Urine Bacteria 1+ H Hyaline Casts 10-30 H Urine Mucus Present H Nasal Screen MRSA (PCR) Lyme Disease IgG Ab Lyme Disease IgM Ab Blood Type Antibody Screen Crossmatch 12/19/18 12/19/18 12/19/18 14:13 14:13 19:18 WBC RBC Hgb Hct MCV MCH MCHC RDW Std Deviation RDW Coeff of Rachna Plt Count MPV Immature Gran % (Auto) Neut % (Auto) Lymph % (Auto) Dickson % (Auto) Eos % (Auto) Baso % (Auto) Immature Gran # (Auto) Neut # (Auto) Lymph # (Auto) Dickson # (Auto) Eos # (Auto) Baso # (Auto) Absolute Nucleated RBC Nucleated RBC % (auto) Anisocytosis Target Cells Tear Drop Cells Echinocytes PT 24.6 H INR 2.6 H APTT PTT Ratio Fibrinogen Sample Site R Radial POC pH 7.28 L POC pCO2 30 L POC pO2 113 H POC HCO3 14 L POC Total CO2 15 L POC Base Excess -13.0 L POC ABG O2 Sat 98.0 H Jamie Test Pass O2 Delivery Device Cannula Sodium Potassium Chloride Carbon Dioxide Anion Gap BUN Creatinine Est Cr Clr Drug Dosing Est GFR ( Amer) Est GFR (Non-Af Amer) BUN/Creatinine Ratio Glucose Lactate Calcium Phosphorus Magnesium Total Bilirubin Direct Bilirubin AST ALT Alkaline Phosphatase Troponin I 0.274 H* NT-Pro-B Natriuret Pep Total Protein Albumin Lipase Specimen Hemolysis Urine Color Urine Appearance Urine pH Ur Specific [place] Urine Protein Urine Glucose (UA) Urine Ketones Urine Blood Urine Nitrite Urine Bilirubin Urine Urobilinogen Ur Leukocyte Esterase Urine RBC Urine WBC Ur Epithelial Cells Calcium Oxalate Crystal Urine Bacteria Hyaline Casts Urine Mucus Nasal Screen MRSA (PCR) Lyme Disease IgG Ab Lyme Disease IgM Ab Blood Type Antibody Screen Crossmatch 12/19/18 12/19/18 12/19/18 19:35 19:35 19:36 WBC 13.90 H RBC 3.96 L Hgb 12.7 Hct 34.2 L MCV 86.4 MCH 32.1 MCHC 37.1 H RDW Std Deviation 67.9 H RDW Coeff of Rachna 22.5 H Plt Count 296 MPV 10.8 H Immature Gran % (Auto) 0.6 Neut % (Auto) 76.8 Lymph % (Auto) 9.2 Dickson % (Auto) 12.8 Eos % (Auto) 0.4 Baso % (Auto) 0.2 Immature Gran # (Auto) 0.08 H Neut # (Auto) 10.68 H Lymph # (Auto) 1.28 Dickson # (Auto) 1.78 H Eos # (Auto) 0.05 Baso # (Auto) 0.03 Absolute Nucleated RBC 0.02 H Nucleated RBC % (auto) 0.1 Anisocytosis Present Target Cells 1+ Tear Drop Cells 1+ Echinocytes 1+ PT INR APTT PTT Ratio Fibrinogen Sample Site POC pH POC pCO2 POC pO2 POC HCO3 POC Total CO2 POC Base Excess POC ABG O2 Sat Jamie Test O2 Delivery Device Sodium Potassium Chloride Carbon Dioxide Anion Gap BUN Creatinine Est Cr Clr Drug Dosing Est GFR ( Amer) Est GFR (Non-Af Amer) BUN/Creatinine Ratio Glucose Lactate 6.4 H* Calcium Phosphorus Magnesium Total Bilirubin Direct Bilirubin AST ALT Alkaline Phosphatase Troponin I NT-Pro-B Natriuret Pep Total Protein Albumin Lipase Specimen Hemolysis Urine Color Urine Appearance Urine pH Ur Specific [place] Urine Protein Urine Glucose (UA) Urine Ketones Urine Blood Urine Nitrite Urine Bilirubin Urine Urobilinogen Ur Leukocyte Esterase Urine RBC Urine WBC Ur Epithelial Cells Calcium Oxalate Crystal Urine Bacteria Hyaline Casts Urine Mucus Nasal Screen MRSA (PCR) Lyme Disease IgG Ab Lyme Disease IgM Ab Blood Type A Negative Antibody Screen NEGATIVE Crossmatch See Detail 12/19/18 12/19/18 12/19/18 19:36 19:36 22:53 WBC RBC Hgb Hct MCV MCH MCHC RDW Std Deviation RDW Coeff of Rachna Plt Count MPV Immature Gran % (Auto) Neut % (Auto) Lymph % (Auto) Dickson % (Auto) Eos % (Auto) Baso % (Auto) Immature Gran # (Auto) Neut # (Auto) Lymph # (Auto) Dickson # (Auto) Eos # (Auto) Baso # (Auto) Absolute Nucleated RBC Nucleated RBC % (auto) Anisocytosis Target Cells Tear Drop Cells Echinocytes PT 25.7 H INR 2.7 H APTT 31.6 H PTT Ratio 1.2 Fibrinogen 242 Sample Site POC pH POC pCO2 POC pO2 POC HCO3 POC Total CO2 POC Base Excess POC ABG O2 Sat Jamie Test O2 Delivery Device Sodium 136 Potassium 4.3 Chloride 106 Carbon Dioxide 15 L Anion Gap 15.0 H BUN 47 H Creatinine 1.76 H Est Cr Clr Drug Dosing 27.3 Est GFR ( Amer) 30.5 Est GFR (Non-Af Amer) 26.3 BUN/Creatinine Ratio 26.9 H Glucose 87 Lactate 7.0 H* Calcium 10.8 H Phosphorus Magnesium 2.2 Total Bilirubin Direct Bilirubin AST ALT Alkaline Phosphatase Troponin I 0.297 H* NT-Pro-B Natriuret Pep Total Protein Albumin Lipase Specimen Hemolysis Urine Color Urine Appearance Urine pH Ur Specific [place] Urine Protein Urine Glucose (UA) Urine Ketones Urine Blood Urine Nitrite Urine Bilirubin Urine Urobilinogen Ur Leukocyte Esterase Urine RBC Urine WBC Ur Epithelial Cells Calcium Oxalate Crystal Urine Bacteria Hyaline Casts Urine Mucus Nasal Screen MRSA (PCR) Lyme Disease IgG Ab Lyme Disease IgM Ab Blood Type Antibody Screen Crossmatch 12/19/18 12/19/18 12/20/18 22:53 Unknown 04:25 WBC 17.24 H RBC 3.85 L Hgb 12.3 12.0 Hct 34.9 L 34.0 L MCV 88.3 MCH 31.2 MCHC 35.3 RDW Std Deviation 68.6 H RDW Coeff of Rachna 22.5 H Plt Count 293 MPV 11.4 H Immature Gran % (Auto) 0.3 Neut % (Auto) 73.1 Lymph % (Auto) 9.9 Dickson % (Auto) 16.5 Eos % (Auto) 0.0 Baso % (Auto) 0.2 Immature Gran # (Auto) 0.06 H Neut # (Auto) 12.59 H Lymph # (Auto) 1.71 Dickson # (Auto) 2.85 H Eos # (Auto) 0.00 Baso # (Auto) 0.03 Absolute Nucleated RBC Nucleated RBC % (auto) Anisocytosis Present Target Cells 1+ Tear Drop Cells Echinocytes 1+ PT INR APTT PTT Ratio Fibrinogen Sample Site POC pH POC pCO2 POC pO2 POC HCO3 POC Total CO2 POC Base Excess POC ABG O2 Sat Jamie Test O2 Delivery Device Sodium Potassium Chloride Carbon Dioxide Anion Gap BUN Creatinine Est Cr Clr Drug Dosing Est GFR ( Amer) Est GFR (Non-Af Amer) BUN/Creatinine Ratio Glucose Lactate Calcium Phosphorus Magnesium Total Bilirubin Direct Bilirubin AST ALT Alkaline Phosphatase Troponin I NT-Pro-B Natriuret Pep Total Protein Albumin Lipase Specimen Hemolysis Urine Color Urine Appearance Urine pH Ur Specific [place] Urine Protein Urine Glucose (UA) Urine Ketones Urine Blood Urine Nitrite Urine Bilirubin Urine Urobilinogen Ur Leukocyte Esterase Urine RBC Urine WBC Ur Epithelial Cells Calcium Oxalate Crystal Urine Bacteria Hyaline Casts Urine Mucus Nasal Screen MRSA (PCR) Negative Lyme Disease IgG Ab Lyme Disease IgM Ab Blood Type Antibody Screen Crossmatch 12/20/18 12/20/18 12/20/18 04:25 04:25 04:25 WBC RBC Hgb Hct MCV MCH MCHC RDW Std Deviation RDW Coeff of Rachna Plt Count MPV Immature Gran % (Auto) Neut % (Auto) Lymph % (Auto) Dickson % (Auto) Eos % (Auto) Baso % (Auto) Immature Gran # (Auto) Neut # (Auto) Lymph # (Auto) Dickson # (Auto) Eos # (Auto) Baso # (Auto) Absolute Nucleated RBC Nucleated RBC % (auto) Anisocytosis Target Cells Tear Drop Cells Echinocytes PT 25.5 H INR 2.7 H APTT PTT Ratio Fibrinogen Sample Site POC pH POC pCO2 POC pO2 POC HCO3 POC Total CO2 POC Base Excess POC ABG O2 Sat Jamie Test O2 Delivery Device Sodium 132 L Potassium 4.7 Chloride 103 Carbon Dioxide 15 L Anion Gap 14.0 H BUN 50 H Creatinine 2.14 H D Est Cr Clr Drug Dosing 22.5 Est GFR ( Amer) 24.0 Est GFR (Non-Af Amer) 20.8 BUN/Creatinine Ratio 23.4 H Glucose 139 H Lactate Calcium 10.6 H Phosphorus 4.8 Magnesium 2.0 Total Bilirubin 10.1 H Direct Bilirubin AST 385 H ALT 111 H Alkaline Phosphatase 999 H Troponin I NT-Pro-B Natriuret Pep Total Protein 4.9 L Albumin 1.7 L Lipase 249 Specimen Hemolysis Urine Color Urine Appearance Urine pH Ur Specific [place] Urine Protein Urine Glucose (UA) Urine Ketones Urine Blood Urine Nitrite Urine Bilirubin Urine Urobilinogen Ur Leukocyte Esterase Urine RBC Urine WBC Ur Epithelial Cells Calcium Oxalate Crystal Urine Bacteria Hyaline Casts Urine Mucus Nasal Screen MRSA (PCR) Lyme Disease IgG Ab Negative Lyme Disease IgM Ab Negative Blood Type Antibody Screen Crossmatch 12/20/18 12/20/18 12/20/18 04:39 04:47 05:54 WBC RBC Hgb Hct MCV MCH MCHC RDW Std Deviation RDW Coeff of Rachna Plt Count MPV Immature Gran % (Auto) Neut % (Auto) Lymph % (Auto) Dickson % (Auto) Eos % (Auto) Baso % (Auto) Immature Gran # (Auto) Neut # (Auto) Lymph # (Auto) Dickson # (Auto) Eos # (Auto) Baso # (Auto) Absolute Nucleated RBC Nucleated RBC % (auto) Anisocytosis Target Cells Tear Drop Cells Echinocytes PT INR APTT PTT Ratio Fibrinogen Sample Site Art Line POC pH 7.36 POC pCO2 24 L POC pO2 79 L POC HCO3 13 L POC Total CO2 14 L POC Base Excess -12.0 L POC ABG O2 Sat 96.0 H Jamie Test NA O2 Delivery Device Cannula Sodium Potassium Chloride Carbon Dioxide Anion Gap BUN Creatinine Est Cr Clr Drug Dosing Est GFR ( Amer) Est GFR (Non-Af Amer) BUN/Creatinine Ratio Glucose Lactate 7.4 H* Calcium Phosphorus Magnesium Total Bilirubin Direct Bilirubin 8.3 H AST ALT Alkaline Phosphatase Troponin I NT-Pro-B Natriuret Pep Total Protein Albumin Lipase Specimen Hemolysis Urine Color Urine Appearance Urine pH Ur Specific [place] Urine Protein Urine Glucose (UA) Urine Ketones Urine Blood Urine Nitrite Urine Bilirubin Urine Urobilinogen Ur Leukocyte Esterase Urine RBC Urine WBC Ur Epithelial Cells Calcium Oxalate Crystal Urine Bacteria Hyaline Casts Urine Mucus Nasal Screen MRSA (PCR) Lyme Disease IgG Ab Lyme Disease IgM Ab Blood Type Antibody Screen Crossmatch
[2018-12-20] MEDS: VASOPRESSIN 20 UNITS in 0.9 % SODIUM CHLORIDE 100 ML IV SCH ×2 (07:40→14:29)
--- NOTE | 2018-12-20 07:42 | XRay Report ---
XR chest 1V portable CLINICAL HISTORY: f/u COMPARISON STUDY: Chest CT and chest radiograph December 19, 2018. FINDINGS: Right subclavian central line is in place. There is no pneumothorax or pleural effusion. No te is made of cardiomegaly without evidence for pulmonary edema. There is no consolidation to suggest pneumonia. IMPRESSION: No acute cardiopulmonary findings. Electronically signed by: Raul Hinojosa M.D. 12/20/2018 7:41 AM
[2018-12-20] MEDS: HYDROCORTISONE SOD 50 MG in SYRINGE 0 ML IV SCH ×3 (07:49→19:47)
--- NOTE | 2018-12-20 07:58 | Cardiology Progress Note ---
Date of Service December 20, 2018 Assessment & Plan (1) Elevated troponin: Her troponin was minimally elevated before this event, last evening it was slightly increased and this morning it is up to 0.6. Given the event she had this is not a surprising increase and is consistent with demand ischemia. (2) SSS (sick sinus syndrome): She seems to have sick sinus syndrome, she had significant sinus bradycardia with long pauses and also syncope (although these were not documented to be at the same time) on beta-cherise, with discontinuation of beta-cherise she was having palpitations and here she had atrial fibrillation with a rapid heart rate. I suspect over the long run she will need rate controlling agents, she may have paroxysmal atrial fibrillation or some other type of tachyarrhythmia. Even off of the beta-cherise she had these long pauses here, although she is quite ill. In any event I think there is enough information present that she will need a pacemaker. The timing of it however should wait until her current situation is addressed, I certainly do not want to put it in now with probable sepsis and hypotension on pressors. If she needs a pacemaker in the interim I would put in a temporary pacemaker not a permanent. Right now I do not think she needs one. She does of external patches in place. (3) Atrial fibrillation: Subjective Events of yesterday afternoon reviewed. From telemetry she became bradycardic which appears to be gradual sinus bradycardia, then sinus arrest and then a junctional rhythm, ultimately long pauses requiring treatment with atropine and epinephrine. She then had atrial fibrillation with a rapid heart rate for a brief time, converting to sinus rhythm. Subsequently she has been hypotensive and on pressors, presumably sepsis. She did have periods of junctional rhythm overnight without any severe bradycardia. She does have a history of some type of palpitations and I believe "SVT" although I cannot find documentation of that easily. She was on high-dose beta- cherise which was reduced when she had syncope at home with long pauses from sinus node dysfunction. 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 Today she is planing of some chest discomfort when she moves (which is probably from brief CPR). No other cardiac complaints. She is little hard to understand. Review of Systems Review of Systems: All systems reviewed & are unremarkable except as noted in HPI & below Physical Exam Physical Exam: Constitutional: Alert, cooperative and in no distress. She answers questions but I cannot always understand her answers. Pulmonary: Clear to auscultation bilaterally. Cardiac: Regular rhythm with no murmur, gallop or rub. Abdomen: Soft, nontender with normal bowel sounds. Extremities: No edema. Skin: No rash, ecchymoses or petechiae. Jaundice is present. Chest wall: She appears to be tender when pressing on her chest wall anteriorly. Results & Data Vital Signs (Past 12 Hours) Vital Signs Temp Pulse Resp BP Pulse Ox 12/20/18 04:31 69 32 H 107/34 L 96 12/20/18 04:16 73 29 H 107/36 L 97 12/20/18 04:01 73 22 113/36 L 98 12/20/18 03:46 73 31 H 89/61 L 97 12/20/18 03:31 74 29 H 106/38 L 96 12/20/18 03:16 75 26 H 110/40 L 97 12/20/18 03:01 74 24 108/35 L 98 12/20/18 02:46 75 18 103/39 L 98 12/20/18 02:31 73 19 103/36 L 97 12/20/18 02:16 73 13 102/36 L 98 12/20/18 02:01 74 28 H 105/34 L 96 12/20/18 01:46 75 16 109/35 L 95 12/20/18 01:31 74 28 H 112/37 L 95 12/20/18 01:28 76 18 123/38 L 94 12/20/18 01:17 73 17 111/34 L 94 12/20/18 01:01 78 11 L 99/33 L 99 12/20/18 00:46 76 21 112/36 L 97 12/20/18 00:31 75 17 104/33 L 100 12/20/18 00:16 74 26 H 120/37 L 100 12/20/18 00:01 77 24 115/31 L 97 12/19/18 23:46 76 16 114/48 L 100 12/19/18 23:31 77 13 106/37 L 98 12/19/18 23:17 75 20 112/33 L 100 12/19/18 23:01 75 23 92/56 L 99 12/19/18 22:46 77 24 108/38 L 99 12/19/18 22:31 78 22 117/35 L 99 12/19/18 22:16 76 21 126/36 L 100 12/19/18 22:01 81 17 92/49 L 94 12/19/18 21:46 78 18 111/33 L 94 12/19/18 21:31 78 18 114/36 L 83 L 12/19/18 21:16 77 32 H 80/52 L 84 L 12/19/18 21:01 75 20 104/36 L 80 L 12/19/18 20:56 80 17 107/34 L 86 L 12/19/18 20:46 76 21 101/36 L 99 12/19/18 20:31 36.6 C 77 17 113/35 L 94 12/19/18 20:16 78 20 104/42 L 96 12/19/18 20:01 79 19 108/37 L 78 L Diagnostic Findings Telemetry: Telemetry reviewed and details are noted in the subjective section above. Electrocardiogram: Preevent she was in sinus bradycardia with frequent premature atrial beats. No acute changes. Echocardiogram: Pre-event she had normal left ventricular function, left ventricular hypertrophy, moderate MR.
--- NOTE | 2018-12-20 08:04 | Hospitalist Progress Note ---
Date of Service December 20, 2018 Assessment & Plan (1) Jaundice: bilirubin elevated at 9 and alk phos markedly elevated at 1200 CT abd/pelvis shows dilated gall bladder, no mention of dilated biliary tree no pain, some weight loss over past few months, no mention of pancreatic lesion, pancreatic duct not dilated will order MRCP stat to look for occlusion discussed with Ally CARLOS at time of admission, keep patient NPO for possible ERCP or EUS at the end of the day no pain in RUQ, no fever, mild leukocytosis doubt cholangitis or cholecystitis but will cover with Zosyn IV for time being (2) CLIF (acute kidney injury): due to dehydration, mild diarrhea recently, poor PO intake concurrently taking Lasix and Losartan as outpatient Cr is 1.7, will give NSS at 100cc/hr, 1L given in the ED already repeat BMP in the afternoon and morning electrolytes stable hold Lasix and Losartan (3) Elevated troponin: no chest pain, sinus bradycardia on monitor will cycle troponin x 2 sets and monitor on tele doubt that this represents ACS or even demand ischemia, perhaps just elevated due to CLIF (4) Elevated LFTs: as mentioned above, all four are elevated but bili up at 9 and alk phos 1200 AST 470 and ALT 126 more likely an obstructive process MRCP this morning GI to decide on further procedures (5) Fall: sounds like mechanical fall due to weakness fell on her buttocks and then continued to fall backwards and struck head on floor no subdural hematoma on CT head monitor for any pauses or arrhythmias on monitor sinus mannie in the ED wore 30 day monitor as outpatient in the past, only one episode of 3 second pause was found (6) History of pulmonary embolism: INR is 2.6 on Coumadin hold Coumadin order Vitamin K 5mg IV and order FFP to be on hold for possible ERCP later today (7) Leukocytosis: mild at 10k no fever will cover with Zosyn but low suspicion for cholangitis at this time (8) Weight loss: could not give me specifics poor appetite for weeks/months has been "trying" to lose weight with Lasix for lower extremity edema not the greatest historian Subjective discussed with Dr. Alan and Dr. Osborn at the bedside patient deteriorated over night, required the addition of Levophed and Vasopressin to the Dopamine blood pressures still running low normal on three pressors exhibiting signs of encephalopathy, speaking clearly but having confusion reviewed labs, lactic acid up to 7, Cr up to 2.1, met acidosis with HCO3 15 WBC trending up to 17k today, INR going up to 2.7, not responding to Vitamin K pH improved on ABG, 7.36 Bilirubin up to 10.1, AST, ALT and Alk phos all still elevated troponin was up minimally after event at 0.2 albumin very low at 1.7 no fever since admission no growth on blood or urine cultures patient was accepted for transfer to [facility] however, patient decided that she did not want any further interventions she did not want intubated, did not want any further surgeries, said she wanted to "naturally" please refer to summary for full details please note that total time spent with patient today was 3.5 hours (210 minutes) spent 730am to 10am treating at the bedside, updated family, discussing with intensivisit, speaking with manager project at [facility] over the phone then long discussion with patient and family regarding care and decision to not transfer and continue care at [facility] changed code status to DNR further talk from 1530 to 1600 about making comfortable and withdrawing care, all family members present then from 1630 to 1700 withdrawing care, speaking with ICU physician and staff and speaking with family Review of Systems Review of Systems: Unobtainable due to reduced consciousness Physical Exam Constitutional: WD/WN, vitals as above + frail appearing; + not appropriately hydrated (appears dry) Eyes: PERRL and EOM intact bilaterally; sclerae not anicteric (icterus) ENMT: external ear and nose normal, oropharynx normal Neck: trachea midline, no thyromegaly Respiratory: normal respiratory effort, lungs clear to auscultation Cardiovascular: Rate/Rhythm: regular rhythm and + bradycardic Heart Sounds: normal S1 and normal S2; no murmur Extremities: normal capillary refill and + pedal edema (trace bilaterally) Gastrointestinal (Abdomen): normal bowel sounds, soft, nontender, no hepatosplenomegaly Musculoskeletal: no cyanosis or clubbing, extremities motor strength 5/5 Skin: + turgor decreased and + jaundice; no rashes Trauma: no contusion Neurologic: patellar DTR's 2+ bilat, sensation intact and PERRL, EOMI, accommodation nl, no face palsy, no dysarthria Psychiatric: A+Ox3, euthymic affect Lymphatic: no cervical or axillary lymphadenopathy Results & Data Vital Signs (Past 12 Hours) Vital Signs Temp Pulse Resp BP Pulse Ox 12/20/18 04:31 69 32 H 107/34 L 96 12/20/18 04:16 73 29 H 107/36 L 97 12/20/18 04:01 73 22 113/36 L 98 12/20/18 03:46 73 31 H 89/61 L 97 12/20/18 03:31 74 29 H 106/38 L 96 12/20/18 03:16 75 26 H 110/40 L 97 12/20/18 03:01 74 24 108/35 L 98 12/20/18 02:46 75 18 103/39 L 98 12/20/18 02:31 73 19 103/36 L 97 12/20/18 02:16 73 13 102/36 L 98 12/20/18 02:01 74 28 H 105/34 L 96 12/20/18 01:46 75 16 109/35 L 95 12/20/18 01:31 74 28 H 112/37 L 95 12/20/18 01:28 76 18 123/38 L 94 12/20/18 01:17 73 17 111/34 L 94 12/20/18 01:01 78 11 L 99/33 L 99 12/20/18 00:46 76 21 112/36 L 97 12/20/18 00:31 75 17 104/33 L 100 12/20/18 00:16 74 26 H 120/37 L 100 12/20/18 00:01 77 24 115/31 L 97 12/19/18 23:46 76 16 114/48 L 100 12/19/18 23:31 77 13 106/37 L 98 12/19/18 23:17 75 20 112/33 L 100 12/19/18 23:01 75 23 92/56 L 99 12/19/18 22:46 77 24 108/38 L 99 12/19/18 22:31 78 22 117/35 L 99 12/19/18 22:16 76 21 126/36 L 100 12/19/18 22:01 81 17 92/49 L 94 12/19/18 21:46 78 18 111/33 L 94 12/19/18 21:31 78 18 114/36 L 83 L 12/19/18 21:16 77 32 H 80/52 L 84 L 12/19/18 21:01 75 20 104/36 L 80 L 12/19/18 20:56 80 17 107/34 L 86 L 12/19/18 20:46 76 21 101/36 L 99 12/19/18 20:31 36.6 C 77 17 113/35 L 94 12/19/18 20:16 78 20 104/42 L 96 (1) Fall Encounter type: initial encounter Qualified Code(s): W19.XXXA - Unspecified fall, initial encounter
[2018-12-20] MEDS: NOREPINEPHRINE BIT INJ 8 MG in DEXTROSE 5% 500 ML IV SCH (08:08)
[2018-12-20] MEDS ORDERED: NOREPINEPHRINE BIT INJ 16 MG in DEXTROSE 5% 500 ML IV SCH (08:45)
[2018-12-20] MEDS ORDERED: ONDANSETRON INJ 2 MG/ML 2 ML VIAL IV PRN (09:03)
[2018-12-20] MEDS: ONDANSETRON INJ 2 MG/ML 2 ML VIAL IV PRN (09:03)
[2018-12-20] MEDS ORDERED: SODIUM CHLORIDE 0.9% 250 ML IV PRN (09:07)
[2018-12-20] MEDS: OCTREOTIDE ACETATE 500 MCG in 0.9 % SODIUM CHLORIDE 100 ML IV SCH ×2 (09:16→18:27)
--- NOTE | 2018-12-20 09:44 | XRay Report ---
XR chest 1V portable CLINICAL HISTORY: Confirm NGT placement COMPARISON STUDY: Chest radiograph performed earlier today. FINDINGS: Tip of nasogastric tube is within the body of the stomach. Right subclavian central line re alexis in place. There is no pneumothorax. There may be a trace left pleural effusion. Cardiomediastin al silhouette is stable. There is no pneumothorax. IMPRESSION: 1. Tip of nasogastric tube within the body of the stomach. 2. Possible trace left pleural effusion with mild left basilar opacity. Electronically signed by: Raul Hinojosa M.D. 12/20/2018 9:43 AM
--- NOTE | 2018-12-20 09:49 | Pharmacy Report ---
Pharmacy Abx Dose Short Note - Date of Service December 20, 2018 - Assessment & Plan Assessment * 83 year old F receiving VANCOMYCIN + ZOSYN for empiric treatment of intra- abdominal infxn / sepsis * Day # 2 of ZOSYN therapy. * Industrial Illuminating Engineer requested only a single dose of VANCOMYCIN today. This single dose should cover patient for next 24 hrs given CLIF * LFT's elevated, possible cholangitis, +UGIB * BLCX's and Urine Cx pending. MRSA nasal swab negative * Pt is hypotensive requiring pressor support (norepi, dopa) + vasopressin + hydrocortisone IV; MAPs < 60 overnight (from A-line) * SCr climbing 1.6-->2.14 Plan Vancomycin * 2000mg (~20mg/kg) IV x 1 dose only * Will check random vanco level w/ AM labs tomorrow to help guide redosing if Industrial Illuminating Engineer plans to continue therapy * Goal trough level for sepsis : 15 to 20 mcg/mL * P'kinetic estimates: Vd 0.6L/kg (BMI > 35); half-life > 30 hours Zosyn * eCrCl 25cc/min or less, BMI > 35; continue aggressive dosing of 4.5gm ext- infusion Q 8 hrs given risks of underdosing in this setting * May need to reduce dosing frequency to Q 12 hrs if eCrCl drops < 20cc/min Pharmacy will continue to follow and will adjust dose/frequency as necessary. Thank you.
[2018-12-20] MEDS ORDERED: METOCLOPRAMIDE HCL INJ 5 MG/ML 2 ML VIAL IV STA (10:32)
[2018-12-20] MEDS ORDERED: ONDANSETRON HCL 8 MG in DEXTROSE 5% 50 ML IV ONE (11:00)
[2018-12-20 11:32] LABS: Hematocrit (blood only) 34.5 % (37-47); Hemoglobin 12.5 g/dL (12.0-16.0); Mean Corpuscular Hgb Conc 36.2 g/dL (32-36); Mean Corpuscular Volume 87.6 fL (80-100); Mean Platelet Volume 10.8 fL (7.4-10.4); Platelet Count 276 K/uL (130-400); RDW Coefficient of Variation 22.8 % (11.5-14.5); RDW Standard Deviation 70.3 fL (36.4-46.3); Red Blood Count 3.94 M/uL (4.2-5.4); White Blood Count 18.73 K/uL (4.8-10.8)
[2018-12-20 11:43] LABS: INR 2.6 (0.9-1.1); Partial Thromboplastin Ratio 1.2; Partial Thromboplastin Time 33.6 Seconds (21.0-31.0)
[2018-12-20 11:55] LABS: BUN Creatinine Ratio 20.6 (10-20); Calcium 10.6 mg/dl (8.5-10.1); Creatinine Clr Calc Pharmacy 20.1 ml/min; Est GFR (Non-African American) 18.2; Magnesium 1.9 mg/dl (1.8-2.4); Potassium 5.2 mmol/L (3.5-5.1)
[2018-12-20 12:06] LABS: Anisocytosis Present; Basophils # (auto) 0.03 K/uL (0-0.2); Basophils % (auto) 0.2 %; Echinocytes 1+; Immature Granulocytes # (auto) 0.07 K/uL (0.00-0.02); Immature Granulocytes % (auto) 0.4 %; Lymphocytes # (auto) 1.72 K/uL (1.2-3.4); Lymphocytes % (auto) 9.2 %; Monocytes # (auto) 2.02 K/uL (0.11-0.59); Monocytes % (auto) 10.8 %; Neutrophils # (auto) 14.89 K/uL (1.4-6.5); Neutrophils % (auto) 79.4 %; Target Cells 1+
[2018-12-20] MEDS ORDERED: NOREPINEPHRINE BIT IV SCH (14:00)
[2018-12-20] MEDS ORDERED: DEXTROSE 5% IV SCH (14:00)
[2018-12-20 15:38] LABS: Hematocrit (blood only) 35.2 % (37-47); Hemoglobin 12.6 g/dL (12.0-16.0); Mean Corpuscular Hgb Conc 35.8 g/dL (32-36); Mean Corpuscular Volume 88.9 fL (80-100); Mean Platelet Volume 10.8 fL (7.4-10.4); Platelet Count 267 K/uL (130-400); RDW Coefficient of Variation 22.8 % (11.5-14.5); RDW Standard Deviation 72.5 fL (36.4-46.3); Red Blood Count 3.96 M/uL (4.2-5.4); White Blood Count 20.44 K/uL (4.8-10.8)
[2018-12-20 15:50] LABS: INR 2.2 (0.9-1.1); Partial Thromboplastin Ratio 1.2; Partial Thromboplastin Time 31.6 Seconds (21.0-31.0)
[2018-12-20 15:58] LABS: BUN Creatinine Ratio 19.5 (10-20); Calcium 10.4 mg/dl (8.5-10.1); Creatinine Clr Calc Pharmacy 18.2 ml/min; Est GFR (African American) 18.7; Est GFR (Non-African American) 16.1; Potassium 5.4 mmol/L (3.5-5.1)
[2018-12-20] MEDS ORDERED: PIPERACILLIN/TAZOBACTAM 4.5 GM in DEXTROSE 5% 50 ML IV SCH (16:00)
[2018-12-20 16:04] LABS: Bilirubin Direct 9.7 mg/dl (0-0.2); Bilirubin,Total 11.7 mg/dl (0.2-1); Total Protein 5.5 gm/dl (6.4-8.2)
[2018-12-20 16:05] LABS: Anisocytosis Present; Basophils # (auto) 0.01 K/uL (0-0.2); Echinocytes 2+; Howell-Jolly Bodies 1+; Immature Granulocytes # (auto) 0.06 K/uL (0.00-0.02); Immature Granulocytes % (auto) 0.3 %; Lymphocytes # (auto) 1.77 K/uL (1.2-3.4); Lymphocytes % (auto) 8.7 %; Monocytes # (auto) 1.86 K/uL (0.11-0.59); Monocytes % (auto) 9.1 %; Neutrophils # (auto) 16.74 K/uL (1.4-6.5); Neutrophils % (auto) 81.9 %; Polychromasia 1+; Spherocytes Occasional; Target Cells 1+
[2018-12-20 16:08] LABS: Base Excess VBG -14.9 mEq/L; Oxygen Saturation VBG 80.1 %; pH VBG 7.22 (7.36-7.41)
[2018-12-20 16:11] LABS: Troponin I 0.614 ng/ml (0-0.045)
[2018-12-20 16:13] LABS: HCO3 ABG 10 mmol/L (19-24); Oxygen Saturation ABG 98.1 % (90-95); PCO2 ABG 24 mmHg (35-46); PO2 ABG 118 mm/Hg (80-95); pH ABG 7.24 (7.35-7.45)
[2018-12-20 16:14] LABS: Allen Test ARTERIAL LINE (Pos)
[2018-12-20] MEDS ORDERED: MoRPHine SULFATE 4 MG/ML 1 ML CARP\\VIAL IV PRN (16:17)
[2018-12-20] MEDS ORDERED: LORazepam 1 MG/2 ML VIAL IV PRN (16:27)
[2018-12-20] MEDS: MoRPHine SULFATE 4 MG/ML 1 ML CARP\\VIAL IV PRN ×3 (16:38→18:32)
--- NOTE | 2018-12-20 17:08 | Death Summary ---
Date of Service December 20, 2018 Pronouncement Note Date and Time of Date of : 12/20/18 Time of : 19:55 PCOD Preliminary cause of : Septic shock Contributing Factors (1) Jaundice: (2) CLIF (acute kidney injury): (3) Elevated troponin: (4) Elevated LFTs: (5) Fall: (6) History of pulmonary embolism: (7) Leukocytosis: (8) Weight loss: Summary Additional details: 83 yo female who presented with a fall at home. No loss of consciousness. In the ED she was jaundiced on exam. Bilirubin was 9, alk phos 1200, AST and ALT mildly elevated. WBC was 10k. No fever, no RUQ pain. Cr was slightly elevated at 1.8. She was admitted for the cholestatic jaundice and acute kidney injury. INR was 2.6, taking Coumadin at home. MRCP showed no dilation of biliary system and there was mild to moderate narrowing of the CBD through the head of the pancreas but no obvious pancreatic mass. Attempted to reverse INR with Vitamin K but it was still elevated at 2.6 in the afternoon. Evaluated by GI, since she had no signs of infection and really no ductal dilation and no stones, decision made to perform outpatient EUS and ERCP if needed. Plan discussed with patient and her family. Around 1630 on 12/19 the patient's HR dropped to the 30's and she had a 6 second sinus pause. Two compressions performed and patient woke up in pain but she was still not feeling well, HR in the 40's and BP low. She was given Atropine with no response. Epinephrine administered and the patient went into SVT in the 150's but blood pressure improved. She vomited a little blood and was layed on her side. Case discussed with cardiology and sow manager and patient was transferred to the ICU. HR continued to be low in the 40-50's, sinus bradycardia. BP low in the 80's systolic but she was still mentating and responding. Dobutamine infusion started. Taken to the ICU and right subclavian line placed. Lab work showed that her lactic acid was 6, Cr rising to 2.0. WBC trending up to 14. She remained afebrile. She was placed back on Zosyn and Vanco for possible infection. On review, her UA was clean on admission and her CT chest showed no pneumonia. There was no other possible cause of infection in the abdomen except for possible cholangitis. Over night into the morning on 12/20/18 she required the addition of Levophed and Vasopressin to the Dobutamine to maintain a MAP > 60. She was clearly in septic shock. Her lactic acid radha to 7 despite adequate blood pressures. Her Cr radha to 2.39. She was experiencing encephalopathy. She had another episode of hematemesis and an NGT was placed to protect her airway. Discussed situation with family, that she likely had septic shock due to cholangitis and that the only option for drainage of the biliary system would be a percutaneous tube. Two options, could transfer to [place] for more options in terms of intervention or could keep patient at [facility]. The patient agreed initially to transfer and family also agreed. Discussed transfer with Dr. Wright at [facility], she agreed to accept the patient, requested that she be intubated prior to transfer to protect airway. Discussed plans with patient and family. She stated that she would not want intubated. She then stated that she would not want any other type of surgery and said that she just wanted to naturally. Family at the bedside, they agreed with her wishes. Repeat lab work in the afternoon showed that her Cr was up to 2.6 and lactic acid was up to 8.8. WBC up to 20k. There was scant urine in her keenan since the morning, maybe 20cc. Discussed with family that patient had evidence of cardiovascular failure, renal failure, liver failure, encephalopathy and she was developing respiratory failure requiring 6L NC. Decision made to make the patient comfortable. All medications stopped and given Morphine and Ativan PRN for pain/restlessness. Patient with family at the bedside at 195 on 12/20/18 Additional Data Confirmation of : no pulse, no respirations, no heart sounds, pupils fixed and dilated and other Family: at bedside Attending/PCP notified?: Yes Attending physician: Toni Bradford, DO Was code activated?: No Autopsy requested?: No rating examiner notified?: No Organ bank notified?: No Advance directives: Yes
== END 2018-12-20 22:15 | disposition expired | DRG 871 ==
LOC: ED 05:32 → 2S 08:23 → 1E 16:53